=== PATIENT | male | born 1945 | race Caucasian/White ===

== ENCOUNTER → 2017-05-30 08:38 | Outpatient (CLI) | payer MEDICARE, SELFPAY ==
[2017-05-30 12:16] LABS: Absolute Lymphocyte Count 1.69 X10^3/ul (0.83-4.51); Absolute Neutrophil Count 2.9 X10^3/uL (2.0-7.7); Basophil# 0.03 X10^3/uL; Basophil% 0.5 % (0-1); Eosinophil# 0.23 X10^3/uL; Eosinophils% 4.2 % (0-5); Hemoglobin 14.3 g/dl (13.0-16.5); Lymphocyte # 1.69 X10^3/ul (4.0); Lymphocyte % 30.8 % (19-41); Mean Corp Hgb Conc 33.3 g/gl (32-36); Mean Corpuscular Hgb 29.9 pg (27.0-32.0); Mean Corpuscular Volume 89.8 fL (80-94); Mean Platelet Vol. 12.1 fl (6.2-12.0); Monocyte# 0.64 X10^3/uL; Monocyte% 11.7 % (0-10); Neutrophil # 2.88 X10^3/uL (2.7-7.7); Neutrophil % 52.6 % (47-70); Platelet Count 216 K/mm3 (150-450); RBC Distribution Width CV 14.3 % (11.6-14.6); RBC Distribution Width SD 46.5 fl (35.1-43.9); Red Blood Count 4.79 M/mm3 (4.6-6.2); White Blood Count 5.5 K/mm3 (4.4-11.0)
[2017-05-30 12:20] LABS: POSITIVE COUNT NO; POSITIVE DIFFERENTIAL NO; POSITIVE MORPHOLOGY NO
[2017-05-30 12:46] LABS: Anion Gap 8 (5-15); BUN 18 mg/dL (7-18); BUN/Creat Ratio 17.1 RATIO (10-20); Chloride 105 mmol/L (98-107); Creatinine, Serum 1.05 mg/dL (0.70-1.30); EST Glomerular Filtration Rate 74 mL/min (>60); Est Glom Filt Rate - Afr Amer 90 mL/min (>60); Glucose 100 mg/dL (74-106); PSA,Total - Annual Screen 1.36 ng/mL (0.00-4.00); Sodium Level 138 mmol/L (136-145); Thyroid Stim Hormone (TSH) 1.66 uIU/mL (0.358-3.74)
== END ==
PROVIDERS: Family Provider Family Medicine; PCP Family Medicine; Visit Provider Family Medicine
DX: I10 Essential (primary) hypertension (principal); E78.5 Hyperlipidemia, unspecified; Z12.5 Encounter for screening for malignant neoplasm of prostate
CPT/HCPCS: 36415; 80048; 84153; 84443; 85025; G0103

== ENCOUNTER → 2018-12-20 08:20 | Outpatient (CLI) | payer MEDICARE, SELFPAY ==
[2018-12-20 12:31] LABS: Absolute Lymphocyte Count 1.67 X10^3/uL (0.83-4.51); Absolute Neutrophil Count 3.2 X10^3/uL (2.0-7.7); Basophil# 0.04 X10^3/uL; Basophil% 0.7 % (0-1); Hematocrit 43.4 % (40-54); Hemoglobin 14.2 g/dL (13.0-16.5); Lymphocyte # 1.67 X10^3/ul (4.0); Mean Corp Hgb Conc 32.7 g/dL (32-36); Mean Corpuscular Hgb 29.5 pg (27.0-32.0); Mean Corpuscular Volume 90.2 fL (80-94); Mean Platelet Vol. 12.4 fl (6.2-12.0); Monocyte# 0.71 X10^3/uL; Monocyte% 11.9 % (0-10); NRBC Flagged by Analyzer 0 % (0-5); Neutrophil # 3.24 X10^3/uL (2.7-7.7); Neutrophil % 54.2 % (47-70); Platelet Count 210 K/mm3 (150-450); RBC Distribution Width CV 14.4 % (11.6-14.6); RBC Distribution Width SD 47.8 fl (35.1-43.9); Red Blood Count 4.81 M/mm3 (4.6-6.2)
[2018-12-20 12:44] LABS: ALB/GLOB Ratio 0.9 RATIO (0.9-2.4); AST(SGOT) 28 U/L (15-37); Alanine Aminotransfer ALT/SGPT 34 U/L (16-61); Albumin, Serum 3.9 g/dL (3.2-5.0); Alkaline Phosphatase 65 U/L (45-117); Anion Gap 8 (5-15); BUN 16 mg/dL (7-18); BUN/Creat Ratio 14.8 RATIO (10-20); Calcium,Total 8.8 mg/dL (8.5-10.1); Chloride 103 mmol/L (98-107); Creatinine, Serum 1.08 mg/dL (0.70-1.30); EST Glomerular Filtration Rate 71 mL/min (>60); Est Glom Filt Rate - Afr Amer 86 mL/min (>60); Globulin 4.2 g/dL (2.2-4.2); Glucose 92 mg/dL (74-106); PSA,Total - Annual Screen 1.28 ng/mL (0.00-4.00); Potassium 3.9 mmol/L (3.5-5.1); Protein, Total 8.1 g/dL (6.4-8.2); Sodium Level 137 mmol/L (136-145)
[2018-12-20 13:06] LABS: Microalbumin,Random Urine 8.1 mg/L (NO RANGE EST.); Microalbumin:Creatinine Ratio 7.3 mg/g CRE (<30 mg/g CRE)
== END ==
PROVIDERS: Family Provider Family Medicine; PCP Family Medicine; Visit Provider Family Medicine
DX: E78.5 Hyperlipidemia, unspecified (principal); I10 Essential (primary) hypertension; Z12.5 Encounter for screening for malignant neoplasm of prostate
CPT/HCPCS: 36415; 80053; 82043; 82570; 84153; 85025; G0103

== ENCOUNTER → 2019-12-24 10:31 | Outpatient (CLI) | payer MEDICARE, SELFPAY ==
[2019-12-24 12:29] LABS: Absolute Lymphocyte Count 1.29 X10^3/uL (0.83-4.51); Absolute Neutrophil Count 10.7 X10^3/uL (2.0-7.7); Basophil# 0.06 X10^3/uL; Basophil% 0.5 % (0-1); Eosinophil# 0.07 X10^3/uL; Eosinophils% 0.5 % (0-5); Hematocrit 44.5 % (40-54); Hemoglobin 14.4 g/dL (13.0-16.5); Lymphocyte # 1.29 X10^3/ul (4.0); Lymphocyte % 9.8 % (19-41); Mean Corp Hgb Conc 32.4 g/dL (32-36); Mean Corpuscular Volume 92.7 fL (80-94); Mean Platelet Vol. 12.5 fl (6.2-12.0); Monocyte# 1.09 X10^3/uL; Monocyte% 8.3 % (0-10); NRBC Flagged by Analyzer 0 % (0-5); Neutrophil # 10.65 X10^3/uL (2.7-7.7); Neutrophil % 80.5 % (47-70); Platelet Count 237 K/mm3 (150-450); RBC Distribution Width CV 13.6 % (11.6-14.6); RBC Distribution Width SD 46.6 fl (35.1-43.9); White Blood Count 13.2 K/mm3 (4.4-11.0)
[2019-12-24 13:21] LABS: ALB/GLOB Ratio 0.9 RATIO (0.9-2.4); AST(SGOT) 34 U/L (15-37); Alanine Aminotransfer ALT/SGPT 56 U/L (16-61); Albumin, Serum 3.8 g/dL (3.2-5.0); Alkaline Phosphatase 70 U/L (45-117); Anion Gap 7 (5-15); BUN 21 mg/dL (7-18); BUN/Creat Ratio 19.6 RATIO (10-20); Calcium,Total 9.3 mg/dL (8.5-10.1); Chloride 104 mmol/L (98-107); Cholesterol 229 mg/dL (200); Creatinine, Serum 1.07 mg/dL (0.70-1.30); EST Glomerular Filtration Rate 72 mL/min (>60); Est Glom Filt Rate - Afr Amer 87 mL/min (>60); Globulin 4.2 g/dL (2.2-4.2); Glucose 111 mg/dL (74-106); High Density Lipoprotein 100 mg/dL; PSA,Total - Annual Screen 1.61 ng/mL (0.00-4.00); Potassium 4.3 mmol/L (3.5-5.1); Sodium Level 137 mmol/L (136-145); Triglycerides 44 mg/dL; Very Low Density Lipoprotein 9 mg/dL (5-40)
== END ==
PROVIDERS: PCP Family Medicine; Visit Provider Family Medicine
DX: Z00.00 Encounter for general adult medical examination without abnormal findings (principal); Z12.5 Encounter for screening for malignant neoplasm of prostate; I10 Essential (primary) hypertension; E78.5 Hyperlipidemia, unspecified; R73.01 Impaired fasting glucose
CPT/HCPCS: 36415; 80053; 80061; 84153; 84443; 85025; G0103

== ENCOUNTER 2021-12-16 06:59 | Inpatient (IN) | payer MEDICARE, SELFPAY ==
[2021-12-16] VITALS (14 sets, daily range): BP systolic 142–190; BP diastolic 54–83; PULSE 54–85; RESP 14–17; TEMP 36.6–37.1; O2SAT 96–100; BMI 27.7; BMI 27.6
--- NOTE | 2021-12-16 07:47 | CT_ITS ---
We are attempting to reach an attending provider to discuss findings. An addendum with communication details will be sent when the communication is complete. STUDY: CTA HEAD AND NECK WITH CONTRAST REASON FOR EXAM: Male, 76 years old. Acute mental status change RADIATION DOSAGE (If Supplied By Facility): CTDIvol = ( 33.85 ) mGy, DLP = ( 1579.20 ) mGycm TECHNIQUE: CT angiography was performed with a multi-detector CT scanner. Data acquisition was obtained from the skull base through the vertex following intravenous administration of IV 80mL Isovue-370. MIP images were reconstructed from the axial data set. Post-processing of the angiographic images was performed, with multiplanar reformation and 3D reconstruction. Individualized dose optimization techniques were used for this CT. COMPARISON: No relevant priors. FINDINGS: Normal bilateral petrous carotid arteries. Normal right cavernous carotid artery with a normal supraclinoid bifurcation. Normal left cavernous carotid artery with a normal supraclinoid bifurcation. Normal right A1 segments of the anterior cerebral artery. There is hypoplastic development of the left A1 segment of the anterior cerebral arteries with an atretic but intact artery. Normal intact anterior communicating artery (ACOM). Normal bilateral A2 segments of the anterior cerebral arteries. Normal right M1 and M2 segments of the middle cerebral arteries, with a normal M1 bifurcation. Normal left M1 and M2 segments of the middle cerebral arteries, with a normal M1 bifurcation. Normal right posterior communicating artery (PCOM). Normal left posterior communicating artery (PCOM). Normal bilateral vertebral arteries. Normal basilar artery with a normal basilar bifurcation. The visualized bilateral superior cerebellar (SCA) arteries are normal. Normal bilateral P1, P2 and visualized P3 segments of the posterior cerebral arteries. There is no demonstrated aneurysm of the [place]. There is no demonstrated abnormality of the visualized brain. AORTIC ARCH: There is atherosclerotic calcific plaque formation of the aortic arch and great vessels arising from the aortic arch, without a hemodynamically significant stenosis. There is a normal origin of the brachiocephalic, left common carotid, and left subclavian arteries. Normal origins of the brachiocephalic, left common carotid, and left subclavian arteries. RIGHT CAROTID ARTERIES: Normal right common carotid artery (CCA). There is mild atherosclerotic plaque formation with minimal narrowing of the right carotid bulb. Normal origin of the right internal carotid (ICA) artery without a hemodynamically significant stenosis. Normal visualized cervical portion of the right internal carotid artery. Normal origin of the right external carotid artery (ECA). LEFT CAROTID ARTERIES: Normal left common carotid artery (CCA). There is mild atherosclerotic plaque formation with minimal narrowing of the left carotid bulb. Normal origin of the left internal carotid (ICA) artery without a hemodynamically significant stenosis. Normal visualized cervical portion of the left internal carotid artery. Normal origin of the left external carotid artery (ECA). VERTEBRAL ARTERIES: There is enhancement within the bilateral vertebral arteries with a small left vertebral artery, and a dominant right vertebral artery. 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 No evidence of aneurysm or vascular malformation Mild calcified plaque in both common carotid artery bulbs, and proximal ICAs but no significant CCA or ICA stenosis Small left vertebral artery Electronically Signed: Jonnathan Moreno MD at 9:32 EDT ,
--- NOTE | 2021-12-16 07:47 | EKG12_ITS ---
Test Reason : NEURO Blood Pressure : / mmHG Vent. Rate : 059 BPM Atrial Rate : 059 BPM P-R Int : 218 ms QRS Dur : 098 ms QT Int : 432 ms P-R-T Axes : 036 -11 048 degrees QTc Int : 427 ms Sinus bradycardia with 1st degree A-V block Septal infarct , age undetermined Abnormal ECG Confirmed by TRACI DELGADO, REJI ([id number]), editorial project manager OCTAVIO HARRIS ([id number]) on 12/17/2021 12:43:33 PM Referred By: Confirmed By:REJI AVILES MD
--- NOTE | 2021-12-16 07:48 | EX.ED.DYSGE1 ---
HPI History of Present Illness Chief Complaint: Neuro S/Sx Informant: patient and spouse/S.O. Narrative Narrative: 76-year-old male presenting to the emergency room feeling wobbly. He states that when he woke today he was feeling wobbly but did not fall down. He states it does not feel like a muscle strength issue. He denies any vertigo. He notes that the tips of his thumb and index finger feel tingly but the rest of the hand and fingers do not. He denies any headache neck or back pain. He denies any chest pain or palpitations. No speech or vision changes. He denies any difficulty with ezpzlw-on-hrwt. He just noticed the wobbliness when he stands up. He did have an episode similar to this following a near syncopal episode this summer. But it resolved on its own with rest. The patient notes he last checked his blood pressure about 9 months ago but is not currently taking anything for it. PFSH PFS Medical History Asthma Home Medications albuterol sulfate 90 mcg/actuation aerosol inhaler 2 puff inhalation Q4H PRN SOB 12/16/21 [History Last Taken Unknown] fluticasone 250 mcg-salmeterol 50 mcg/dose blistr powdr for inhalation (Wixela Inhub) 1 inh inhalation DAILY 12/16/21 [History Last Taken Unknown] Allergy/AdvReac Type Severity Reaction Status Date / Time chocolate flavor AdvReac Rash Verified 12/16/21 07:07 ibuprofen AdvReac Other Verified 12/16/21 07:06 Surgical History History of hernia surgery Hx of tonsillectomy Social History (Updated 12/16/21 @ 07:[address] Chris Quiroga DO) household members: spouse Smoking Status: Former smoker substance use type: does not use ROS ROS ED Constitutional Constitutional ED: Denies chills or weight loss Eyes Eyes: Denies change in vision or diplopia ENT ENT ED: Denies ear pain, rhinorrhea or sore throat Cardiovascular Cardiovascular: Denies chest pain, orthopnea, palpitations or racing heartbeat Respiratory/Chest Respiratory/Chest: Denies cough, dyspnea or orthopnea Gastrointestinal Gastrointestinal: Denies abdominal pain, diarrhea, nausea or vomiting Genitourinary Genitourinary ED: Denies dysuria, hematuria or urinary frequency Musculoskeletal Musculoskeletal: Denies arthralgias or myalgias Integumentary Denies abscess or rash Neurologic Neurologic: Reports other Details: Off balance ; Denies headache(s), paresthesias or weakness Psychiatric Psychiatric: Denies anxiety, depression, suicidal ideation or suicidal thoughts Endocrine Endocrinology: Denies polydipsia, polyphagia or polyuria Allergic/Immunologic Allergic/Immunologic ED: Denies mouth swelling, tongue swelling or urticaria EXAM Physical Exam Const Vital Signs: 12/16/21 07:00 12/16/21 09:37 12/16/21 10:24 Temperature 98.7 F Temperature Source Oral Pulse Rate 60 54 L 59 L Respiratory Rate 17 16 14 Blood Pressure 190/76 H 180/75 H 177/65 H Blood Pressure Mean 114 110 102 Pulse Ox 98 98 98 Oxygen Delivery Method Room Air Room Air Room Air Positive well nourished and well developed General Appearance ED: well developed HEENT Reports normocephalic, head/scalp atraumatic and moist mucous membranes Eyes PERRL and EOMs intact bilaterally Neck no lymphadenopathy, supple and no JVD Resp normal respiratory effort and clear to auscultation bilaterally Cardio regular rate, regular rhythm and no murmurs GI normal to inspection, nondistended, normoactive bowel sounds and non-tender Palpation: soft Back/Spine no CVA tenderness and normal ROM Extremity normal to inspection General Extremety ED: Negative for edema General Extremity: Negative for edema Neuro oriented x3 and CN's II-XII intact bilaterally Sensorium / Orientation: alert Motor Exam: strength 5/5 throughout Psych mental status grossly normal Mood & Affect: Negative for depressed or tearful Skin no rashes or lesions noted and no wounds MDM MDM MDM Narrative Medical decision making narrative: Patient's EKG shows a normal sinus rhythm. CTA head and neck was obtained which does not show anything acute. CBC is within normal limits. Coags within normal limits. Patient's creatinine is 0.9. Initial troponin was 294. Delta troponin at 335. He continues to be pain-free but noticeably hypertensive in the 190 range systolically. He received a dose of hydralazine and is currently 148/65. He remains pain-free. He got up and was able to ambulate to the bathroom but still feels wobbly. He does not have an abnormal limb-co-mvqt or hekbqo-ei-mvmj. His NIH is 0. Perhaps this is hypertensive urgency. Given his lack of significant medical problem and the significant elevated blood pressure and troponin think it is reasonable to observe him today for continued care. Lab Data Attestation: I reviewed the patient's lab results. Labs: Laboratory Results - last 24 hr 12/16/21 12/16/21 12/16/21 07:36 07:49 07:49 WBC 6.1 RBC 5.03 Hgb 15.0 Hct 46.1 MCV 91.7 MCH 29.8 MCHC 32.5 RDW Std Deviation 46.7 H RDW Coeff of Garth 13.8 Plt Count 264 MPV 12.1 H Immature Gran % (Auto) 0.200 Neut % (Auto) 51.5 Lymph % (Auto) 30.8 [place] % (Auto) 14.2 H Eos % (Auto) 2.6 Baso % (Auto) 0.7 Absolute Neuts (auto) 3.2 Absolute Lymphs (auto) 1.88 Nucleated RBC % 0 PT 14.4 INR 1.2 APTT 27.3 Sodium Potassium Chloride Carbon Dioxide Anion Gap BUN Creatinine Estim Creat Clear Calc Est GFR (MDRD) Af Amer Est GFR (MDRD) Non-Af BUN/Creatinine Ratio Glucose Calcium Total Bilirubin AST ALT Alkaline Phosphatase Troponin I High Sens Total Protein Albumin Globulin Albumin/Globulin Ratio POC Glucose 90 12/16/21 12/16/21 07:49 10:09 WBC RBC Hgb Hct MCV MCH MCHC RDW Std Deviation RDW Coeff of Garth Plt Count MPV Immature Gran % (Auto) Neut % (Auto) Lymph % (Auto) [place] % (Auto) Eos % (Auto) Baso % (Auto) Absolute Neuts (auto) Absolute Lymphs (auto) Nucleated RBC % PT INR APTT Sodium 138 Potassium 4.1 Chloride 107 Carbon Dioxide 27.0 Anion Gap 4 L BUN 21 H Creatinine 0.92 Estim Creat Clear Calc 69.38 Est GFR (MDRD) Af Amer 103 Est GFR (MDRD) Non-Af 85 BUN/Creatinine Ratio 22.7 H Glucose 106 Calcium 9.0 Total Bilirubin 0.40 AST 30 ALT 35 Alkaline Phosphatase 58 Troponin I High Sens 294 H* 335 H* Total Protein 7.5 Albumin 3.4 Globulin 4.1 Albumin/Globulin Ratio 0.8 L POC Glucose Radiography Diagnostic Testing: Clinical Impression(s) from Imaging Studies Head/Neck CTA 12/16/21 07:47 IMPRESSION: No CTA evidence of occlusion or significant stenosis, 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 No evidence of aneurysm or vascular malformation Mild calcified plaque in both common carotid artery bulbs, and proximal ICAs but no significant CCA or ICA stenosis Small left vertebral artery N.B. : The above Results were Read Back by Jonnathan Moreno MD to Chris Quiroga MD, and understanding confirmed on 12/16/2021 09:39:37 (ET). Electronically Signed: Jonnathan Moreno MD at 9:32 EDT , Chest X-Ray 12/16/21 09:34 IMPRESSION: No acute process Electronically Signed: Mikal Zuniga MD at 9:59 EDT , EKG Initial EKG: Attestation: I personally reviewed and interpreted this EKG as follows: Comments: Sinus bradycardia with a ventricular rate of 59 bpm. First-degree AV block noted. Discharge Plan Triage Chief Complaint: Neuro S/Sx Other Complaint: General Illness ED Provider: Chris Quiroga Dx/Rx/DC Orders Clinical Impression: Hypertensive urgency, Elevated troponin, Ataxia Prescriptions: No Action albuterol sulfate 90 mcg/actuation HFA aerosol inhaler 2 puff INHALATION Q4H PRN (Reason: SOB) Label Comments: 2 PUFFS INHALED ORALLY EVERY 4 HOURS NEEDED fluticasone propion-salmeterol [Wixela Inhub] 250-50 mcg/dose blister with device 1 inh INHALATION DAILY Primary Care Provider: Glen Balderas Referrals: Glen Balderas MD [Primary Care Provider] - Disposition Disposition: Acute Care Hospital [facility] NIHSS NIHSS 1a. Level of Consciousness: Alert; keenly responsive 1b. LOC Questions: Answers BOTH questions correctly. 1c. LOC Commands: Performs both tasks correctly. 2. Best Gaze: Normal 3. Visual: No visual loss 4. Facial Palsy: Normal symmetrical movements 5a. Left Arm: No drift; arm holds 90 (or 45) degrees for full 10 seconds 5b. Right Arm: No drift; arm holds 90 (or 45) degrees for full 10 seconds 6a. Left Leg: No drift; leg holds 30-degree position for full 5 seconds 6b. Right Leg: No drift; leg holds 30-degree position for full 5 seconds 7. Limb Ataxia: Absent 8. Sensory: Normal; no sensory loss 9. Best Language: No aphasia; normal 10. Dysarthria: Normal 11. Extinction and Inattention: No abnormality Total: 0
[2021-12-16 07:55] LABS: Bedside Glucose 90 mg/dL (74-106)
[2021-12-16] MEDS: 0.9% Normal Saline 1,000 ML 1000 ML IV (07:57)
--- NOTE | 2021-12-16 08:00 | NURSING ---
NO OLD EKGS
[2021-12-16 08:02] LABS: Absolute Lymphocyte Count 1.88 X10^3/uL (0.83-4.51); Absolute Neutrophil Count 3.2 X10^3/uL (2.0-7.7); Basophil# 0.04 X10^3/uL; Basophil% 0.7 % (0-1); Eosinophil# 0.16 X10^3/uL; Eosinophils% 2.6 % (0-5); Hematocrit 46.1 % (40-54); Lymphocyte # 1.88 X10^3/ul (0.83-4.51); Lymphocyte % 30.8 % (19-41); Mean Corp Hgb Conc 32.5 g/dL (32-36); Mean Corpuscular Hgb 29.8 pg (27.0-32.0); Mean Corpuscular Volume 91.7 fL (80-94); Mean Platelet Vol. 12.1 fl (6.2-12.0); Monocyte# 0.87 X10^3/uL; Monocyte% 14.2 % (0-10); NRBC Flagged by Analyzer 0 % (0-5); Neutrophil # 3.15 X10^3/uL (2.7-7.7); Neutrophil % 51.5 % (47-70); Platelet Count 264 K/mm3 (150-450); RBC Distribution Width CV 13.8 % (11.6-14.6); RBC Distribution Width SD 46.7 fl (35.1-43.9); Red Blood Count 5.03 M/mm3 (4.6-6.2); White Blood Count 6.1 K/mm3 (4.4-11.0)
[2021-12-16 08:49] LABS: International Normalized Ratio 1.2; Prothrombin Time (Protime)PT. 14.4 SECONDS (11.7-14.9)
[2021-12-16 08:50] LABS: Partial Thromboplast Time 27.3 Seconds (24.1-36.2)
[2021-12-16 08:58] LABS: ALB/GLOB Ratio 0.8 RATIO (0.9-2.4); AST(SGOT) 30 U/L (15-37); Alanine Aminotransfer ALT/SGPT 35 U/L (16-61); Albumin, Serum 3.4 g/dL (3.2-5.0); Alkaline Phosphatase 58 U/L (45-117); Anion Gap 4 (5-15); BUN 21 mg/dL (7-18); BUN/Creat Ratio 22.7 RATIO (10-20); Chloride 107 mmol/L (98-107); Creatinine, Serum 0.92 mg/dL (0.70-1.30); EST Glomerular Filtration Rate 85 mL/min (>60); Est Glom Filt Rate - Afr Amer 103 mL/min (>60); Estimated Creatinine Clearance 69.38 ml/min; Globulin 4.1 g/dL (2.2-4.2); Glucose 106 mg/dL (74-106); Potassium 4.1 mmol/L (3.5-5.1); Protein, Total 7.5 g/dL (6.4-8.2); Sodium Level 138 mmol/L (136-145); Troponin-I HS 294 pg/mL (3.0-78.0)
--- NOTE | 2021-12-16 09:34 | RAD_ITS ---
STUDY: X-RAY CHEST REASON FOR EXAM: Male, 76 years old. stroke PT REPORTS HE FEELS WOBBLY WHEN HE GETS UP TO AMBULATE AND HAS NUMBNESS TO HIS LEFT FINGERS. STARTED AROUND 0600 THIS AM. TECHNIQUE: 2 AP portable view of the chest. COMPARISON: None. FINDINGS: The lungs are clear and expanded. There is no demonstrated pleural abnormality. Normal size heart. Normal mediastinum and cipriano. Normal visualized pulmonary arteries. There is atherosclerotic calcification of the aortic arch with tortuosity. There are diffuse degenerative changes of the visualized thoracic spine. Normal visualized ribs, clavicles, and shoulders. There is no demonstrated abnormality of the visualized soft tissue structures of the upper abdomen. RAD/Chest 1 View (Portable) IMPRESSION: No acute process Electronically Signed: Mikal Zuniga MD at 9:59 EDT ,
[2021-12-16] MEDS: hydrALAZINE 20 MG/ML Vial 10 MG IV (10:25)
[2021-12-16 10:46] LABS: Troponin-I HS 335 pg/mL (3.0-78.0)
--- NOTE | 2021-12-16 11:19 | NURSING ---
DR CIRO FLORES
--- NOTE | 2021-12-16 11:24 | MRI_ITS ---
STUDY: MRI BRAIN WITHOUT CONTRAST REASON FOR EXAM: Male, 76 years old. ataxia, HTN, tips of thumb and index finger tingling TECHNIQUE: Standardized multiplanar fat and water weighted pulse sequences were obtained. COMPARISON: CTA head 12/16/2021. FINDINGS: No intracranial mass, mass effect or midline shift. No hemorrhage, territorial infarct or acute ischemia. Normal size of the ventricles and extra-axial spaces for the patient''s age. Normal white matter tracts of the supratentorial brain. Normal bilateral basal ganglia. Normal thalami. There is no extra-axial fluid accumulation. Normal flow voids within the major intracranial circulation suggesting patency by spin echo criteria. Pituitary gland is normal in height. Normal midbrain, thien and medulla. Normal cerebellum. Normal basal cisterns. Normal bilateral temporal bones. Normal bilateral internal auditory canals. Normal visualized paranasal sinuses. Normal calvarium and skull base. Normal visualized soft tissue structures. MRI/Brain without Contrast IMPRESSION: Normal unenhanced MRI of the brain. Electronically Signed: Therese Jama MD at 16:33 EDT Reading Location ID and State: [id number] / Tel , Service support ,
--- NOTE | 2021-12-16 11:24 | ECHOCS_ITS ---
Reason For Study: TIA/STROKE Procedure This was a 2D Doppler, Color Flow transthoracic echocardiogram. The study was technically difficult. Exam performed portable in patient room. Left Ventricle Normal LV size. Left ventricular systolic function is normal. The estimated ejection fraction is 60 %. No evidence for diastolic dysfunction. No regional wall motion abnormalities noted. Right Ventricle Normal RV size. Normal systolic function. Atria The left atrium is mildly enlarged. Normal right atrium. No doppler evidence for ASD. Bubble contrast study negative for right to left interatrial shunt. Mitral Valve There is mild mitral annular calcification. Extension of the mitral annular calcification on the base of the posterior mitral valve leaflet. Trivial mitral valve insufficiency. Tricuspid Valve Normal tricuspid valve. Trivial tricuspid valve insufficiency. Unable to estimate RV systolic pressure due to insufficient tricuspid regurgitant envelope. Aortic Valve Trisinus/trileaflet aortic valve. 2D echocardiographic images demonstrate a small soft appearing echodensity associated with the aortic valve leaflets on the aortic side of uncertain etiology with a differential diagnosis including papillary fibroelastoma, however, other etiologies such as a vegetation cannot necessarily be excluded. Pulmonic Valve Normal pulmonic valve. Great Vessels Normal sized aortic root. Pericardium/Pleural No pericardial effusion. Medication Diluted definity 3ml given slow IV push to enhance endocardial definition. Performed a rapid injection of agitated mix of 9 cc saline and 1cc air to assess for atrial septal defect. MMode/2D Measurements & Calculations LVIDd: 4.5 cm IVSd: 1.0 cm Ao root diam: 3.3 cm LVIDs: 2.9 cm LVPWd: 0.90 cm RVDd: 3.4 cm FS: 34.9 % LAV(MOD-bp): 51.2 ml LVAd ap4: 31.0 cm2 SV(MOD-sp4): 60.7 ml LAV(MOD-bp) Indexed: 25.5 ml/m2 LVLd ap4: 7.7 cm LAV(MOD-sp2): 48.6 ml EDV(MOD-sp4): 100.8 ml LAV(MOD-sp4): 52.8 ml EDV(sp4-el): 106.0 ml LVAs ap4: 17.6 cm2 LVLs ap4: 6.3 cm ESV(MOD-sp4): 40.1 ml ESV(sp4-el): 41.8 ml EF(MOD-sp4): 60.2 % EF(sp4-el): 60.6 % SV(sp4-el): 64.2 ml LA A4 area: 19.3 cm2 LA dimension(2D): 4.4 cm RA A4 area: 17.2 cm2 Time Measurements MV dec time: 0.20 sec Doppler Measurements & Calculations MV E max rd: 56.7 cm/sec Lat Peak E' Rd: 12.7 cm/sec Med Peak E' Rd: 8.3 cm/sec MV A max rd: 86.7 cm/sec E/E' lat: 4.5 E/E' med: 6.8 MV E/A: 0.65 MV dec slope: 290.3 cm/sec2 Ao V2 max: 117.7 cm/sec LV V1 max: 94.9 cm/sec Ao max P.5 mmHg LV V1 max P.6 mmHg PA V2 max: 83.4 cm/sec ECHO/Echo Complete W/ Contrast Interpretation Summary The study was technically difficult. Left ventricular systolic function is normal. The estimated ejection fraction is 60 %. The left atrium is mildly enlarged. There is mild mitral annular calcification. Extension of the mitral annular calcification on the base of the posterior mitr al valve leaflet Trivial mitral valve insufficiency. Trivial tricuspid valve insufficiency. 2D echocardiographic images demonstrate a small soft appearing echodensity asso ciated with the aortic valve leaflets on the aortic side of uncertain etiology with a different ial diagnosis including papillary fibroelastoma, however, other etiologies such as a vegetati on cannot necessarily be excluded. Unable to estimate RV systolic pressure due to insufficient tricuspid regurgita nt envelope. No evidence for diastolic dysfunction. Consider further evaluation of the aortic valve findings with TRICIA if clinically indicated. Ordering Physician: Yasmeen Bryant Referring Physician: NESS HUITRON Performed By: Harika Church RDCS
--- NOTE | 2021-12-16 11:28 | NURSING ---
[facility], [facility] CALLED. GAYLE WILL BE HEREIN 1HR 20 MIN. SHE WILL CALL WITH A ROOM
--- NOTE | 2021-12-16 11:32 | NURSING ---
[facility]
[2021-12-16] MEDS: Aspirin 325 MG Tablet PO (11:55)
[2021-12-16] MEDS: Lisinopril 20 MG Tablet PO (13:49)
[2021-12-16 15:05] LABS: Troponin-I HS 322 pg/mL (3.0-78.0)
--- NOTE | 2021-12-16 15:05 | CHAPLAIN ---
Type of Pastoral Visit _x__ Initial Visit ___ Follow-up Visit ___ On-call Visit ___ General Patient Visit ___ Spiritual Assessment ___ Family Conference ___ Bereavement ___ Rapid Response ___ Code Blue ___ Other (describe below) Pastoral Care Referral From _x__ Patient ___ Family ___ Nurse ___ Physician ___ Chief Of Anesthesiology ___ Sweet Pickle Maker ___ Other (describe below) Sacrament/Intervention _x__ Active listening ___ Anointing ___ Yarsanism ___ Bereavement ___ Communion ___ Treva exploration ___ ___ Life review _x__ Prayer ___ Reconciliation ___ Sacrament of Sick ___ Supportive presence ___ Wedding ___ Other (describe below) Pastoral Comments patient is finishing up lunch and is welcoming of spiritual care visit; pt states that this is new to him and that he will be getting more tests to start to rule out things; pt said goal is to discover what is going on in his health; spouse is with pt for support; pt states that prayer would be welcomed
--- NOTE | 2021-12-16 15:48 | ECHOTEE_ITS ---
Reason For Study: Endocarditis Medication TRICIA probe 6VT-D (SN [id number]) passed with minimal difficulty. No complications were noted. Versed 1 mg given slow IVP. Fentanyl 50 mcg given slow IVP. Cetacaine Topical [place] given X3 orally. Performed a rapid injection of agitated mix of 9 cc saline and 1cc air to assess for atrial septal defect. Left Ventricle Normal LV size. Left ventricular systolic function is normal. The estimated ejection fraction is 65 %. No regional wall motion abnormalities noted. Right Ventricle Normal RV size. The right ventricular wall motion is normal. Atria No doppler evidence for ASD. Bubble contrast study negative for right to left interatrial shunt. The left atrium is mildly enlarged. There is no sponatenous contrast in the left atrium. No thrombus is detected in the left atrial appendage. Normal right atrium. There is no sponatenous contrast in the right atrium. Note right atrial/appendage thrombus appreciated. Mitral Valve There is mild mitral annular calcification. Normal mitral valve. Trivial mitral valve insufficiency. Tricuspid Valve Normal tricuspid valve. Trivial tricuspid valve insufficiency. Aortic Valve Trisinus/trileaflet aortic valve. 2D and 3D echocardiographic images demonstrate a mobile echodensity appearing to be associated with the right coronary cusp of the aortic valve apparatus measuring approximately 0.7 cm x 1.0 cm in dimension appearing compatible with a papillary fibroelastoma. Pulmonic Valve The pulmonic valve is not well visualized. Vessels Normal-appearing thoracic aorta. Pericardium No pericardial effusion. ECHO/Echo Transesophageal (TRICIA) Interpretation Summary Left ventricular systolic function is normal. The estimated ejection fraction is 65 %. The left atrium is mildly enlarged. There is no sponatenous contrast in the left atrium. No thrombus is detected in the left atrial appendage. There is mild mitral annular calcification. Trivial mitral valve insufficiency. Trivial tricuspid valve insufficiency. 2D and 3D echocardiographic images demonstrate a mobile echodensity appearing t o be associated with the right coronary cusp of the aortic valve apparatus measuring approximately 0 .7 cm x 1.0 cm in dimension appearing compatible with a papillary fibroelastoma. Bubble contrast study negative for right to left interatrial shunt. Comment: The patient's case was discussed and reviewed with Dr. Bryant of the [facility] staff. Ordering Physician: Yasmeen Bryant Referring Physician: Glen Balderas Performed By: Elmo Hernandez RCS
--- NOTE | 2021-12-16 16:41 | PCM.HP.STD ---
HPI - General General Date of Admission: 12/16/21 Date of Service: 12/16/21 Chief Complaint: Ataxia HPI Narrative DAISHA TUCKER, is a 76 M who presented to the emergency department [facility] on 12/16/2021 complaining of feeling wobbly. He reported that upon awakening today he was feeling a bit unstable but did not fall down. His his confirms that he was quite ataxic upon getting up. Patient indicated that he did not feel weak but it was more of an unsteadiness. He denied any vertigo. He also complained of the tips of his left thumb and index finger feeling tingly but not numb. He had no other paresthesias and denied any focal muscle weakness. His indicated that this happened 1 previous episode over the summer but went away independently. He had previously been diagnosed with hypertension and was placed on lisinopril that was converted to amlodipine but then these medications were discontinued as he stated his blood pressure normalized. He has a history of asthma and had a visit several months ago and his blood pressure was noted to be at that time however they attributed this to his asthma. At the time of my evaluation he states that overall his symptoms feel improved however he has not been up to move around. His indicated that his previous episodes seem to be associated with a facial droop however she cannot remember which side of his face was drooping and she was not clear that it occurred at this time. He exercises on a regular basis and is quite active. Vital signs at the time of presentation showed a temperature of 97.7, heart rate was 60, blood pressure was 190/76 and stayed elevated throughout his emergency department course, respiratory rate was 17, and oxygen saturation was 98 200% on room air. BC was overall unremarkable other than a mild monocytosis. Coags were normal. His chemistry panel was unremarkable. His initial troponin was 294 with a repeat at 335. EKG showed sinus bradycardia with a ventricular rate of 59 bpm and a first-degree AV block but no ST-T wave changes consistent with acute ischemia. His chest x-ray was unremarkable. CTA of his head and neck showed no occlusions or marked calcifications but was positive for a hypoplastic left A1 segment and a small left vertebral artery. [facility] Medical History Asthma HTN (hypertension) Home Medications albuterol sulfate 90 mcg/actuation aerosol inhaler 2 puff inhalation Q4H PRN SOB 12/16/21 [History Last Taken Unknown] fluticasone 250 mcg-salmeterol 50 mcg/dose blistr powdr for inhalation (Wixela Inhub) 1 inh inhalation DAILY 12/16/21 [History Last Taken Unknown] loratadine 10 mg tablet (Claritin) 10 mg PO DAILY Check with primary doctor 12/16/21 [History Last Taken Unknown] Allergy/AdvReac Type Severity Reaction Status Date / Time chocolate flavor AdvReac Rash Verified 12/16/21 07:07 ibuprofen AdvReac Other Verified 12/16/21 07:06 no significant family history Surgical History History of hernia surgery Hx of tonsillectomy Social History (Updated 12/16/21 @ 16:[address] Yasmeen Bryant DO) household members: spouse housing: house Smoking Status: Former smoker alcohol intake: never substance use type: does not use what type of physical activity do you participate in: swimming How many days of moderate to strenuous exercise, like a brisk walk, did you do in the last 7 days: 7 frequency: daily ROS Constitutional Constitutional: Denies anorexia, change in weight, chills, fatigue, fever(s), malaise, night sweats, weakness or other Eyes Eyes: Denies blurry vision, change in eye color, change in vision, discharge from eye(s), double vision, erythema, eye pain, loss of vision or other ENT HEENT: Reports abnormal hearing and hearing loss; Denies dysphagia, ear pain, epistaxis, headache(s), nasal congestion, nasal discharge, post nasal drip, sinus pressure, sore throat or other Cardiovascular Cardiovascular: Denies chest pain, claudication, dyspnea on exertion, edema, lightheadedness, orthopnea, palpitations, paroxysmal nocturnal dyspnea, rapid heart rate, syncope or other Respiratory/Chest Respiratory/Chest: Denies cough, dyspnea, excessive phlegm production, hemoptysis, productive cough, shortness of breath at rest, shortness of breath with exertion, wheezing or other Gastrointestinal Gastrointestinal: Denies abdominal pain, coffee ground emesis, constipation, diarrhea, dyspepsia, hematemesis, hematochezia, loose stools, melena, nausea, vomiting or other Genitourinary Genitourinary: Denies burning urination, difficulty urinating, dysuria, hematuria, nocturia, urinary frequency, urinary hesitancy, urinary incontinence, urinary urgency or other Musculoskeletal Musculoskeletal: Denies arthralgias, back pain, joint pain, joint stiffness, joint swelling, myalgias, neck pain or other Neurologic Neurologic: Reports abnormal gait and paresthesias; Denies abnormal speech, confusion, disequilibrium, dizziness, focal weakness, headache(s), numbness, seizure-like activity, seizures, syncope, tingling, tremor(s) or other Psychiatric Psychiatric: Denies anxiety, depression, homicidal ideation, suicidal ideation or other Hematologic/Lymphatic Hematologic/Lymphatic: Denies anemia, easy bleeding, easy bruising, lymphadenopathy or other Allergic/Immunologic Allergic/Immunologic: Denies rhinitis, hives, eczemia, asthma or other Vital Signs Vital Signs Vital Signs: 12/16/21 07:00 12/16/21 09:37 12/16/21 10:24 Temperature 98.7 F Temperature Source Oral Pulse Rate 60 54 L 59 L Respiratory Rate 17 16 14 Respiratory Effort Respiratory Depth Respiratory Pattern Blood Pressure 190/76 H 180/75 H 177/65 H Blood Pressure Mean 114 110 102 Blood Pressure Source Blood Pressure Position Blood Pressure Location Pulse Ox 98 98 98 Oxygen Delivery Method Room Air Room Air Room Air 12/16/21 10:45 12/16/21 11:30 12/16/21 12:12 Temperature 98.7 F 97.9 F Temperature Source Oral Oral Pulse Rate 59 L 68 Respiratory Rate 14 17 Respiratory Effort Respiratory Depth Respiratory Pattern Blood Pressure 145/54 H 176/68 H 185/83 H Blood Pressure Mean 84 104 117 Blood Pressure Source Monitor Blood Pressure Position Semi-Fowlers Blood Pressure Location Left Arm Pulse Ox 98 100 Oxygen Delivery Method Room Air Room Air 12/16/21 12:40 12/16/21 14:51 12/16/21 14:49 Temperature Temperature Source Pulse Rate 85 66 Respiratory Rate Respiratory Effort Respiratory Depth Respiratory Pattern Blood Pressure Blood Pressure Mean Blood Pressure Source Blood Pressure Position Blood Pressure Location Pulse Ox 99 Oxygen Delivery Method Room Air 12/16/21 13:00 12/16/21 16:10 Temperature 97.9 F Temperature Source Oral Pulse Rate 61 Respiratory Rate 16 Respiratory Effort Normal Non-Labored Respiratory Depth Normal Respiratory Pattern Normal Blood Pressure 166/66 H Blood Pressure Mean 99 Blood Pressure Source Monitor Blood Pressure Position Semi-Fowlers Blood Pressure Location Right Arm Pulse Ox 100 Oxygen Delivery Method Room Air Room Air Weight Weight: 84.7 kg Body Mass Index (BMI) 27.6 Physical Exam Const alert, oriented x3, no apparent distress, average body habitus, healthy appearing and well nourished Constitutional Narrative: Very pleasant, older, white male sitting up in bed, at bedside, patient appears comfortable nontoxic HEENT normocephalic, head/scalp atraumatic, hearing grossly normal bilaterally, moist oral mucous membranes and oropharynx normal HEENT Narrative: Dentition is good for age, Mallampati is 2, no thrush Eyes PERRL, EOMs intact bilaterally and conjunctivae normal Eyes Narrative: No scleral icterus Neck no lymphadenopathy, supple, no JVD and no carotid bruits Neck Narrative: Trachea midline, no thyroid enlargement Resp normal respiratory effort, no retractions, no use of accessory muscles and clear to auscultation bilaterally Auscultation: Negative for crackles, rales, rhonchi or wheezes Cardio regular rate, regular rhythm, S1 normal heart sound, S2 normal heart sound, no murmurs, no rub, no clicks and no JVD Cardio Narrative: Positive S4 gallop GI normal to inspection, nondistended, normoactive bowel sounds, soft to palpation and non-tender Extremity no clubbing, cyanosis or edema Extremity Narrative: 2+ pedal pulses Skin no wounds, skin turgor normal, no jaundice, no petechiae and no mottling Skin Narrative: Scattered actinic keratoses and previously his sun exposed areas Neuro oriented x3, CN's II-XII intact bilaterally, moves all extremities and no focal motor deficits Neuro Narrative: Reflexes are 2+, no significant sensory deficits other than distal tip of left thumb and index finger Speech: speech normal Psych affect normal Psych Narrative: Very pleasant and appropriately interactive Results Lab / Micro Data Result Diagrams: 12/16/21 07:49 12/16/21 07:49 Labs: Laboratory Results - last 24 hr 12/16/21 07:36: POC Glucose 90 12/16/21 07:49: WBC 6.1, RBC 5.03, Hgb 15.0, Hct 46.1, MCV 91.7, MCH 29.8, MCHC 32.5, RDW Std Deviation 46.7 H, RDW Coeff of Garth 13.8, Plt Count 264, MPV 12.1 H, Immature Gran % (Auto) 0.200, Neut % (Auto) 51.5, Lymph % (Auto) 30.8, [place] % (Auto) 14.2 H, Eos % (Auto) 2.6, Baso % (Auto) 0.7, Absolute Neuts (auto) 3.2, Absolute Lymphs (auto) 1.88, Nucleated RBC % 0 12/16/21 07:49: PT 14.4, INR 1.2, APTT 27.3 12/16/21 07:49: Sodium 138, Potassium 4.1, Chloride 107, Carbon Dioxide 27.0, Anion Gap 4 L, BUN 21 H, Creatinine 0.92, Estim Creat Clear Calc 69.38, Est GFR (MDRD) Af Amer 103, Est GFR (MDRD) Non-Af 85, BUN/Creatinine Ratio 22.7 H, Glucose 106, Calcium 9.0, Total Bilirubin 0.40, AST 30, ALT 35, Alkaline Phosphatase 58, Troponin I High Sens 294 H*, Total Protein 7.5, Albumin 3.4, Globulin 4.1, Albumin/Globulin Ratio 0.8 L 12/16/21 10:09: Troponin I High Sens 335 H* 12/16/21 13:56: Troponin I High Sens 322 H* Radiology Impression Head/Neck CTA 12/16/21 07:47 IMPRESSION: No CTA evidence of occlusion or significant stenosis, 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 No evidence of aneurysm or vascular malformation Mild calcified plaque in both common carotid artery bulbs, and proximal ICAs but no significant CCA or ICA stenosis Small left vertebral artery N.B. : The above Results were Read Back by Jonnathan Moreno MD to Chris Quiroga MD, and understanding confirmed on 12/16/2021 09:39:37 (ET). Electronically Signed: Jonnathan Moreno MD at 9:32 EDT , Chest X-Ray 12/16/21 09:34 IMPRESSION: No acute process Electronically Signed: Mikal Zuniga MD at 9:59 EDT , Brain MRI 12/16/21 11:24 IMPRESSION: Normal unenhanced MRI of the brain. Electronically Signed: Therese Jama MD at 16:33 EDT , Echocardiogram 12/16/21 11:24 Interpretation Summary The study was technically difficult. Left ventricular systolic function is normal. The estimated ejection fraction is 60 %. The left atrium is mildly enlarged. There is mild mitral annular calcification. Extension of the mitral annular calcification on the base of the posterior mitral valve leaflet Trivial mitral valve insufficiency. Trivial tricuspid valve insufficiency. 2D echocardiographic images demonstrate a small soft appearing echodensity associated with the aortic valve leaflets on the aortic side of uncertain etiology with a differential diagnosis including papillary fibroelastoma, however, other etiologies such as a vegetation cannot necessarily be excluded. Unable to estimate RV systolic pressure due to insufficient tricuspid regurgitant envelope. No evidence for diastolic dysfunction. Consider further evaluation of the aortic valve findings with TRICIA if clinically indicated. Ordering Physician: Yasmeen Bryant Referring Physician: NESS HUITRON Performed By: Harika Church RDCS Assessment & Plan Assessment/Plan (1) Ataxia: (2) Elevated troponin: (3) Hypertensive emergency: PLAN: Plan Ataxia -May be related to markedly elevated blood pressure and hypertensive emergency however need to rule out TIA/stroke -Check echocardiogram -MRI -CTA without any marked abnormalities -Check lipids -Check TSH -Start statin -Baby aspirin -PT/OT consultation Hypertensive emergency -Suspect this is etiology for his troponin elevation on presentation -As needed's available per stroke order set -We will start low-dose lisinopril for improved control and monitor as I do not want to drop his blood pressure too quickly with concern for above stroke/TIA -No marked cutoffs on CTA -Patient will likely need discharged on antihypertensives -Goal blood pressure is less than 140/90 given risk factors Troponin elevation -Anticipate related to blood pressure elevation -Cycle cardiac enzymes -Check echocardiogram -If echo shows no wall motion abnormality and troponin trend down will attribute to blood pressure elevation and no need for further work-up -EKG is normal -Patient is completely asymptomatic and exercises on a regular basis with regard to any chest pain or shortness of breath Asthma -Continue home budesonide -Continue home as needed albuterol DVT prophylaxis -Lovenox CODE STATUS -Full code Charges/Coding Visit Charges Inpatient E&M: 63577 Init Hosp L3
[2021-12-16] MEDS: Albuterol 2.5 MG/3 ML VIAL.NEB. INHALATION (19:44)
[2021-12-16] MEDS: Budesonide Respules 0.5 MG/2 ML AMPUL.NEB. INHALATION (19:44)
[2021-12-16] MEDS: Atorvastatin Calcium 80 MG Tablet PO (21:07)
[2021-12-17] VITALS (14 sets, daily range): BP systolic 139–159; BP diastolic 61–71; PULSE 51–82; RESP 12–19; TEMP 36.5–37.1; O2SAT 93–96; BMI 27.6
[2021-12-17 05:58] LABS: Absolute Neutrophil Count 3.3 X10^3/uL (2.0-7.7); Basophil# 0.05 X10^3/uL; Basophil% 0.8 % (0-1); Eosinophil# 0.15 X10^3/uL; Eosinophils% 2.4 % (0-5); Hematocrit 43.8 % (40-54); Hemoglobin 14.8 g/dL (13.0-16.5); Lymphocyte % 30.1 % (19-41); Mean Corp Hgb Conc 33.8 g/dL (32-36); Mean Corpuscular Hgb 30.4 pg (27.0-32.0); Mean Corpuscular Volume 89.9 fL (80-94); Mean Platelet Vol. 11.5 fl (6.2-12.0); Monocyte# 0.88 X10^3/uL; Monocyte% 13.9 % (0-10); NRBC Flagged by Analyzer 0 % (0-5); Neutrophil # 3.32 X10^3/uL (2.7-7.7); Neutrophil % 52.6 % (47-70); Platelet Count 250 K/mm3 (150-450); RBC Distribution Width SD 46.5 fl (35.1-43.9); Red Blood Count 4.87 M/mm3 (4.6-6.2); White Blood Count 6.3 K/mm3 (4.4-11.0)
[2021-12-17 06:34] LABS: Phosphorus 3.1 mg/dL (2.5-4.9)
[2021-12-17 07:04] LABS: Anion Gap 3 (5-15); BUN 19 mg/dL (7-18); Calcium,Total 9.1 mg/dL (8.5-10.1); Chloride 109 mmol/L (98-107); Cholesterol 196 mg/dL (200); Creatinine, Serum 0.95 mg/dL (0.70-1.30); EST Glomerular Filtration Rate 82 mL/min (>60); Est Glom Filt Rate - Afr Amer 99 mL/min (>60); Estimated Creatinine Clearance 67.19 ml/min; Glucose 101 mg/dL (74-106); High Density Lipoprotein 75 mg/dL; Magnesium 2.5 mg/dL (1.6-2.6); Potassium 4.1 mmol/L (3.5-5.1); Sodium Level 139 mmol/L (136-145); Thyroid Stim Hormone (TSH) 1.96 uIU/mL (0.358-3.74); Triglycerides 58 mg/dL; Very Low Density Lipoprotein 12 mg/dL (5-40)
[2021-12-17] MEDS: Albuterol 2.5 MG/3 ML VIAL.NEB. INHALATION ×3 (07:29→18:50)
[2021-12-17] MEDS: Budesonide Respules 0.5 MG/2 ML AMPUL.NEB. INHALATION ×2 (07:29→18:50)
[2021-12-17] MEDS: 0.9% Saline Lock 10 ML Syringe IV (07:59)
--- NOTE | 2021-12-17 10:01 | CASEMGMT ---
SERGIO CM NOTE: Insurance review [facility] hospitals [facility] Insurance if transfer is recommended is as follows: [facility], [place], [facility], [facility], [facility], [facility], [facility]), [place], and . Cristina HURTADO RN CM
--- NOTE | 2021-12-17 11:10 | CASEMGMT ---
RN ELIGIO Face to Face with patient for initial transition planning/care coordination assessment. RN CM introduced self and role at [facility]. Patient lying in bed, alert and oriented, at bedside. Patient willing to participate in assessment and is able to answer all questions appropriately. Care providers, pharmacy, and demographics verified. Patient wishes to discharge home, denies need for home health at this time. Patient states he has no further needs or concerns at this time. CM to follow for discharge planning needs that may arise. PCP: Andrey Specialists: none Preferred Pharmacy: [facility] Insurance: [place] Prescription Benefit: yes Living Will/HPOA: yes, Irma Meredith LNOK: Living Arrangements: Patient lives with in a 1.5 story condo with no steps to enter. Bed and bath on first floor. Patient states he is independent Transportation: self, DME/HHC: Patient states he has raised toilet, cane, walker at home. No previous HHC or SNF. Disposition Plan: Patient to discharge home with family support and follow-up plans in place. Raissa HURTADO, RN, CM
[2021-12-17] MEDS: Aspirin 81 MG TAB.CHEW PO (11:24)
[2021-12-17] MEDS: hydroCHLOROthiazide 25 MG Tablet PO (11:25)
[2021-12-17] MEDS: Lisinopril 20 MG Tablet PO (11:25)
[2021-12-17] MEDS: Loratadine 10 MG Tablet PO (11:25)
[2021-12-17] MEDS: Enoxaparin 40 MG/0.4 ML Syringe SC (11:26)
--- NOTE | 2021-12-17 13:18 | CON.PCM.CA_ITS ---
Assessment & Plan Assessment/Plan (1) Papillary fibroelastoma of heart: PLAN: The patient has echocardiographic findings compatible with a papillary fibroelastic [place]. It is unclear as to whether or not this is associated with the patient's ongoing concerns versus being a coincidental finding that has been detected during his noninvasive evaluation. At the moment it would be recommended that the patient be referred to a tertiary care center for CT surgery evaluation for consideration for surgical resection of this finding to confirm the diagnosis as well as to remove this finding as a potential embolic source. (2) Elevated troponin: PLAN: The patient does have elevated troponin I levels. They have not significantly changed with respect to a peak/rise and decline. They may be related to his hypertension. He does not appear to have classic symptoms with respect to acute coronary syndrome or any obvious acute electrocardiographic changes. At the moment he will continue his blood pressure evaluation and care. (3) Hypertensive emergency: PLAN: Again his blood pressure was elevated. This may be the source of his symptoms and his cardiac enzyme changes. He is undergoing additional evaluation and care of his blood pressure. (4) Ataxia: PLAN: He was reported as being ataxic. It does not appear he has definitive evidence for any [employer] acute event especially thromboembolic event. This may be related to his findings of marked hypertension. He will continue his noninvasive valuation and care of his blood pressure. Addt'l Comments Overall, at the present time, the patient will be referred to a cardiovascular tertiary care center CT surgery group for additional evaluation and care of the findings compatible with an aortic valve papillary fibroelastoma for consideration for surgical resection. The patient has elected to have his case referred to the [facility] for the aforementioned evaluation and care. Thus his cardiovascular consultation and echocardiographic findings will be referred to Dr. Silver Acevedo of [facility] CT surgery. The patient's case was discussed and reviewed with the patient and Dr. Bryant of the [facility] staff. This note was generated using a voice recognition system and there may be incorrect words, spelling or punctuation that were not noted when reviewing the office note prior to saving. HPI Consult Data Date of Consult: 12/17/21 HPI Narrative HPI Narrative: DAISHA TUCKER, is a 76 year old white male who presents for vascular consultation for concerns of an abnormal transthoracic echocardiogram/aortic valve disorder. He states to the best of his knowledge he has never had any cardiovascular diagnoses given to him in the past. He has been a very active 76-year-old male with respect to his exercise activity at home, swimming, etc. He denies any symptoms suspicious for angina pectoris. There is been no episodes of orthopnea or PND or peripheral pitting edema. He has had no near- syncope or syncope. He states he had an episode where he felt somewhat off balance. There was co ncerns as to whether or not he may have experienced a CVA. He was brought to the [facility] for further evaluation and care. He was noted to be markedly hypertensive at the time. He had abnormal cardiac enzyme levels. He had no acute electrocardiographic changes. He underwent radiologic studies since his admission which of been considered negative for any evidence of thromboembolic events. He is undergone noninvasive cardiovascular studies based upon the initial concern of a thromboembolic event. This included a transthoracic echocardiogram. The results are noted below. Based upon these results there were concerns as to whether or not he may have evidence of a papillary fibroblastoma attached to his aortic valve. Thus he underwent further evaluation with a transesophageal echocardiogram for additional 2D and 3D echocardiographic images. Those findings are noted below. In the interim he states he feels back to normal. His cardiac enzymes were trended and appeared to be without significant rise or decline. They have been thought to be related to an underlying hypertensive event as he has had no symptoms of an acute coronary syndrome and no electrocardiographic changes. Based upon his overall findings he was asked to have a formal cardiovascular consultation to help coordinate future cardiovascular care. PENDING SALE TO [facility] Medical History Asthma HTN (hypertension) Home Medications albuterol sulfate 90 mcg/actuation aerosol inhaler 2 puff inhalation Q4H PRN SOB 12/16/21 [History Last Taken Unknown] fluticasone 250 mcg-salmeterol 50 mcg/dose blistr powdr for inhalation (Wixela Inhub) 1 inh inhalation DAILY 12/16/21 [History Last Taken Unknown] loratadine 10 mg tablet (Claritin) 10 mg PO DAILY Check with primary doctor 12/16/21 [History Last Taken Unknown] Allergy/AdvReac Type Severity Reaction Status Date / Time chocolate flavor AdvReac Rash Verified 12/16/21 07:07 ibuprofen AdvReac Other Verified 12/16/21 07:06 Family History no significant family his Surgical History History of hernia surgery Hx of tonsillectomy Social History (Updated 12/16/21 @ 16:[address] Yasmeen Bryant DO) household members: spouse housing: house Smoking Status: Former smoker alcohol intake: never substance use type: does not use what type of physical activity do you participate in: swimming How many days of moderate to strenuous exercise, like a brisk walk, did you do in the last 7 days: 7 frequency: daily Physical Exam Const alert, oriented x3, no apparent distress and healthy appearing Orientation / Consciousness: awake HEENT normocephalic, head/scalp atraumatic and hearing grossly normal bilaterally Eyes PERRL, EOMs intact bilaterally, conjunctivae normal and no scleral icterus Neck full ROM, supple and no JVD Carotids: normal carotid upstroke Chest inspection of chest normal Resp normal respiratory effort and clear to auscultation bilaterally Cardio regular rate, regular rhythm, S1 normal heart sound and S2 normal heart sound Palpation: normal PMI Rate: regular rate Rhythm: regular rhythm Heart Sounds: S1 normal and S2 normal GI normal to inspection, nondistended, normoactive bowel sounds Extremity no pedal edema Skin no rashes or lesions noted Psych mental status grossly normal Risk Stratification Risk Stratification Applicable: Yes Age >/= 65: Yes >/= 3 CAD Risk Factors (HTN, HLD, DM, family hx of CAD, or current smoker): No Aspirin Use in the Past 7 Days: No Severe Angina (>/= episodes in 24 hours): No EKG ST Changes >/= 0.5mm: No Positive Cardiac Marker: Yes JAVI Risk Stratification Score: 2 JAVI % Risk: 8% Risk Procedure Criteria Type of Procedure Procedure Type: Elective Elective Risks - COVID COVID Risk Discussion: The surgeon/proceduralist and patient have discussed in detail the risk of exposure to and/or potential harm posed by the COVID-19 virus with having a surgery/procedure at this time versus the risk of delaying the surgery/procedure. It is not possible to know either the risk of delaying the surgery or procedure or chance of getting an infection with perfect accuracy, but a joint decision was made between the patient and the surgeon/proceduralist to proceed at this time with the scheduled surgery/procedure as indicated on the consent form. Objective Data Vital Signs: Vital Signs Temp Pulse Resp BP Pulse Ox O2 Del Method 98.7 F 55 L 17 139/64 H 96 Room Air 12/17/21 11:19 12/17/21 11:19 12/17/21 11:19 12/17/21 11:19 12/17/21 11:19 12/17/21 11:19 Oxygen Delivery Method Room Air Weight: 186 lb 11.704 oz Body Mass Index (BMI) 27.6 Intake & Output: Intake and Output for Last 24 Hours 12/15/21 12/16/21 12/17/21 23:59 23:59 23:59 Intake Total 1450 / 1450 Balance 1450 / 1450 Lab / Micro Data Result Diagrams: 12/17/21 05:00 12/17/21 05:00 Labs: Laboratory Results - last 24 hr 12/16/21 13:56: Troponin I High Sens 322 H* 12/17/21 05:00: Sodium 139, Potassium 4.1, Chloride 109 H, Carbon Dioxide 27.0, Anion Gap 3 L, BUN 19 H, Creatinine 0.95, Estim Creat Clear Calc 67.19, Est GFR (MDRD) Af Amer 99, Est GFR (MDRD) Non-Af 82, BUN/Creatinine Ratio 20.0, Glucose 101, Calcium 9.1, Magnesium 2.5, Triglycerides 58, Cholesterol 196, LDL Cholesterol 109, VLDL Cholesterol 12, HDL Cholesterol 75, TSH 1.96 12/17/21 05:00: WBC 6.3, RBC 4.87, Hgb 14.8, Hct 43.8, MCV 89.9, MCH 30.4, MCHC 33.8, RDW Std Deviation 46.5 H, RDW Coeff of Garth 14.0, Plt Count 250, MPV 11.5, Immature Gran % (Auto) 0.200, Neut % (Auto) 52.6, Lymph % (Auto) 30.1, [place] % (Auto) 13.9 H, Eos % (Auto) 2.4, Baso % (Auto) 0.8, Absolute Neuts (auto) 3.3, Absolute Lymphs (auto) 1.90, Nucleated RBC % 0 12/17/21 05:00: Phosphorus 3.1 Micro: Microbiology 12/17/21 06:50 Nasal Secretion SARS-CoV-2 Antigen (Rapid) - Final Cardiology Labs/Tests 12/17/21 05:00: Sodium 139, Potassium 4.1, Chloride 109 H, Carbon Dioxide 27.0, Anion Gap 3 L, BUN 19 H, Creatinine 0.95, Est GFR (MDRD) Af Amer 99, Est GFR (MD RD) Non-Af 82, BUN/Creatinine Ratio 20.0, Glucose 101, Calcium 9.1, Magnesium 2.5, Triglycerides 58, Cholesterol 196, LDL Cholesterol 109, VLDL Cholesterol 12, HDL Cholesterol 75 12/17/21 05:00: WBC 6.3, RBC 4.87, Hgb 14.8, Hct 43.8, MCV 89.9, MCH 30.4, MCHC 33.8, Plt Count 250, MPV 11.5, Immature Gran % (Auto) 0.200, Neut % (Auto) 52.6, Lymph % (Auto) 30.1, [place] % (Auto) 13.9 H, Eos % (Auto) 2.4, Baso % (Auto) 0.8, Absolute Neuts (auto) 3.3, Nucleated RBC % 0 12/17/21 05:00: Phosphorus 3.1 Rhythm: Sinus rhythm EKG: Sinus bradycardia; prolonged [place] interval ECHO: As noted below TRICIA: As noted below Radiography Diagnostic Testing: Radiology Impression Brain MRI 12/16/21 11:24 IMPRESSION: Normal unenhanced MRI of the brain. Electronically Signed: Therese Jama MD at 16:33 EDT Reading Location ID and State: [id number] / Tel , Service support , Echocardiogram 12/16/21 11:24 Interpretation Summary The study was technically difficult. Left ventricular systolic function is normal. The estimated ejection fraction is 60 %. The left atrium is mildly enlarged. There is mild mitral annular calcification. Extension of the mitral annular calcification on the base of the posterior mitral valve leaflet Trivial mitral valve insufficiency. Trivial tricuspid valve insufficiency. 2D echocardiographic images demonstrate a small soft appearing echodensity associated with the aortic valve leaflets on the aortic side of uncertain etiology with a differential diagnosis including papillary fibroelastoma, however, other etiologies such as a vegetation cannot necessarily be excluded. Unable to estimate RV systolic pressure due to insufficient tricuspid regurgitant envelope. No evidence for diastolic dysfunction. Consider further evaluation of the aortic valve findings with TRICIA if clinically indicated. Ordering Physician: Yasmeen Bryant Referring Physician: GLEN BALDERAS Performed By: Harika Church RDCS Transesophageal Echocardiogram 12/16/21 15:48 Interpretation Summary Left ventricular systolic function is normal. The estimated ejection fraction is 65 %. The left atrium is mildly enlarged. There is no sponatenous contrast in the left atrium. No thrombus is detected in the left atrial appendage. There is mild mitral annular calcification. Trivial mitral valve insufficiency. Trivial tricuspid valve insufficiency. 2D and 3D echocardiographic images demonstrate a mobile echodensity appearing to be associated with the right coronary cusp of the aortic valve apparatus measuring approximately 0.7 cm x 1.0 cm in dimension appearing compatible with a papillary fibroelastoma. Bubble contrast study negative for right to left interatrial shunt. Comment: The patient's case was discussed and reviewed with Dr. Bryant of the [facility] staff. Ordering Physician: Yasmeen Bryant Referring Physician: Glen Balderas Performed By: Elmo Hernandez, JANET
--- NOTE | 2021-12-17 14:19 | PN.HOSP_ITS ---
Subjective Subjective Patient reports his unsteady feeling is improved. He has just returned from his TRICIA. Findings were discussed with him by Dr. Hayes. Upon my discussion he would like to pursue aggressive management which would include outpatients evaluation by cardiothoracic surgery. He would like to go to the [facility] so we will have his images pushed there and Dr. Hayes will arrange outpatient follow-up after discharge from here. He is yet to be seen by physical therapy. Objective Data Objective Data Vital Signs: Vital Signs Temp Pulse Resp BP Pulse Ox O2 Del Method 98.7 F 55 L 17 139/64 H 96 Room Air 12/17/21 11:19 12/17/21 11:19 12/17/21 11:19 12/17/21 11:19 12/17/21 11:19 12/17/21 11:19 Oxygen Delivery Method Room Air Weight: 84.7 kg Body Mass Index (BMI) 27.6 Intake & Output: Intake and Output for Last 24 Hours 12/15/21 12/16/21 12/17/21 23:59 23:59 23:59 Intake Total 1450 / 1450 Balance 1450 / 1450 Lab / Micro Data Result Diagrams: 12/17/21 05:00 12/17/21 05:00 Labs: Laboratory Results - last 24 hr 12/16/21 13:56: Troponin I High Sens 322 H* 12/17/21 05:00: Sodium 139, Potassium 4.1, Chloride 109 H, Carbon Dioxide 27.0, Anion Gap 3 L, BUN 19 H, Creatinine 0.95, Estim Creat Clear Calc 67.19, Est GFR (MDRD) Af Amer 99, Est GFR (MDRD) Non-Af 82, BUN/Creatinine Ratio 20.0, Glucose 101, Calcium 9.1, Magnesium 2.5, Triglycerides 58, Cholesterol 196, LDL Cholesterol 109, VLDL Cholesterol 12, HDL Cholesterol 75, TSH 1.96 12/17/21 05:00: WBC 6.3, RBC 4.87, Hgb 14.8, Hct 43.8, MCV 89.9, MCH 30.4, MCHC 33.8, RDW Std Deviation 46.5 H, RDW Coeff of Garth 14.0, Plt Count 250, MPV 11.5, Immature Gran % (Auto) 0.200, Neut % (Auto) 52.6, Lymph % (Auto) 30.1, [place] % (Auto) 13.9 H, Eos % (Auto) 2.4, Baso % (Auto) 0.8, Absolute Neuts (auto) 3.3, Absolute Lymphs (auto) 1.90, Nucleated RBC % 0 12/17/21 05:00: Phosphorus 3.1 Micro: Microbiology 12/17/21 06:50 Nasal Secretion SARS-CoV-2 Antigen (Rapid) - Final Radiography Diagnostic Testing: Radiology Impression Brain MRI 12/16/21 11:24 IMPRESSION: Normal unenhanced MRI of the brain. Electronically Signed: Therese Jama MD at 16:33 EDT Reading Location ID and State: [id number] / Tel , Service support , Echocardiogram 12/16/21 11:24 Interpretation Summary The study was technically difficult. Left ventricular systolic function is normal. The estimated ejection fraction is 60 %. The left atrium is mildly enlarged. There is mild mitral annular calcification. Extension of the mitral annular calcification on the base of the posterior mitral valve leaflet Trivial mitral valve insufficiency. Trivial tricuspid valve insufficiency. 2D echocardiographic images demonstrate a small soft appearing echodensity associated with the aortic valve leaflets on the aortic side of uncertain etiology with a differential diagnosis including papillary fibroelastoma, however, other etiologies such as a vegetation cannot necessarily be excluded. Unable to estimate RV systolic pressure due to insufficient tricuspid regurgitant envelope. No evidence for diastolic dysfunction. Consider further evaluation of the aortic valve findings with TRICIA if clinically indicated. Ordering Physician: Yasmeen Bryant Referring Physician: GLEN BALDERAS Performed By: Harika Church, DELORES Transesophageal Echocardiogram 12/16/21 15:48 Interpretation Summary Left ventricular systolic function is normal. The estimated ejection fraction is 65 %. The left atrium is mildly enlarged. There is no sponatenous contrast in the left atrium. No thrombus is detected in the left atrial appendage. There is mild mitral annular calcification. Trivial mitral valve insufficiency. Trivial tricuspid valve insufficiency. 2D and 3D echocardiographic images demonstrate a mobile echodensity appearing to be associated with the right coronary cusp of the aortic valve apparatus measuring approximately 0.7 cm x 1.0 cm in dimension appearing compatible with a papillary fibroelastoma. Bubble contrast study negative for right to left interatrial shunt. Comment: The patient's case was discussed and reviewed with Dr. Bryant of the [facility] staff. Ordering Physician: Yasmeen Bryant Referring Physician: Glen Balderas Performed By: Elmo Hernandez RCS Physical Exam Const alert, oriented x3, no apparent distress, average body habitus, healthy appearing and well nourished Constitutional Narrative: Very pleasant, older, white male sitting up in bed, at bedside, patient appears comfortable nontoxic HEENT normocephalic, head/scalp atraumatic, hearing grossly normal bilaterally, moist oral mucous membranes and oropharynx normal Resp normal respiratory effort, no retractions, no use of accessory muscles and clear to auscultation bilaterally Auscultation: Negative for crackles, rales, rhonchi or wheezes Cardio regular rate, regular rhythm, S1 normal heart sound, S2 normal heart sound, no murmurs, no rub, no gallops, no clicks and no JVD GI normal to inspection, nondistended, normoactive bowel sounds, soft to palpation and non-tender Extremity no clubbing, cyanosis or edema Extremity Narrative: 2+ pedal pulses Neuro oriented x3, moves all extremities and no focal motor deficits Speech: speech normal Psych affect normal Psych Narrative: Very pleasant and appropriately interactive Assessment & Plan Assessment/Plan (1) Ataxia: (2) Elevated troponin: (3) Hypertensive emergency: PLAN: Plan Ataxia -May be related to markedly elevated blood pressure and hypertensive emergency however need to rule out TIA/stroke -At cardiogram from 12/16/2021 shows EF of 60% with mild left atrial enlargement and trivial mitral valve and tricuspid valve insufficiency, also small appearing echodensity on the aortic valve leaflets on the aortic side of an determined etiology -MRI performed and shows no acute abnormalities -CTA without any marked abnormalities -Total cholesterol is 196/LDL 109/HDL 75 -TSH within normal limit -We will continue statin to get LDL less than 100 -Discontinue baby aspirin -PT/OT consultation pending Hypertensive emergency -Suspect this is etiology for his troponin elevation on presentation -Blood pressure is much better but still elevated -Continue lisinopril 20 mg daily -Add hydrochlorothiazide 25 mg daily -Check a.m. BMP -Goal blood pressure is less than 140/90 given risk factors Troponin elevation -Anticipate related to blood pressure elevation -Cardiac enzymes on admission was 294 with high-sensitivity troponin and then trended up to 335 but then back down to 322 -SPECT related to markedly elevated blood pressure on admission with no significant wall motion abnormalities, chest pain, shortness of breath at baseline -Patient is highly active and exercises daily quite strenuously and has had no symptoms -EKG is normal Papillary fibroelastoma -TRICIA performed today to better clarify abnormality or aortic valve -Is consistent with fibroelastoma -Discussed with cardiology and will place formal consult -Given the size patient will need evaluation by cardiothoracic surgery -Images pushed to [facility] as patient would like to pursue management there -Plan will be to optimize blood pressure while he is here and then arrange for outpatient follow-up Asthma -Continue home budesonide -Continue home as needed albuterol DVT prophylaxis -Lovenox CODE STATUS -Full code Charges/Coding Visit Charges Inpatient E&M: 76695 Subs Hosp L2
[2021-12-17] MEDS: Atorvastatin Calcium 80 MG Tablet PO (21:21)
[2021-12-18 01:14] VITALS: BMI 27.6
[2021-12-18 02:59] VITALS: PULSE 55
[2021-12-18 03:20] VITALS: BP 126/82; PULSE 53; RESP 16; TEMP 36.6; O2SAT 97
[2021-12-18 06:38] LABS: Anion Gap 7 (5-15); BUN 22 mg/dL (7-18); BUN/Creat Ratio 22.8 RATIO (10-20); Calcium,Total 8.7 mg/dL (8.5-10.1); Chloride 105 mmol/L (98-107); Creatinine, Serum 0.97 mg/dL (0.70-1.30); EST Glomerular Filtration Rate 81 mL/min (>60); Est Glom Filt Rate - Afr Amer 97 mL/min (>60); Glucose 97 mg/dL (74-106); Potassium 4.1 mmol/L (3.5-5.1); Sodium Level 135 mmol/L (136-145)
[2021-12-18 06:59] VITALS: PULSE 52
[2021-12-18 07:27] VITALS: PULSE 55; RESP 14; O2SAT 95
[2021-12-18] MEDS: Budesonide Respules 0.5 MG/2 ML AMPUL.NEB. INHALATION (07:27)
[2021-12-18] MEDS: Albuterol 2.5 MG/3 ML VIAL.NEB. INHALATION (07:27)
--- NOTE | 2021-12-18 08:26 | PN.CARD_ITS ---
Subjective Subjective The patient has been up and ambulating around the hallways. Overall he states he feels back to his normal self. He has had no recurrent ataxic type symptoms nor has he had any other acute cardiovascular symptoms or concerns. Objective Data Vital Signs: Vital Signs Temp Pulse Resp BP Pulse Ox O2 Del Method 97.8 F 52 L 16 126/82 H 97 Room Air 12/18/21 03:20 12/18/21 06:59 12/18/21 03:20 12/18/21 03:20 12/18/21 03:20 12/18/21 03:20 Oxygen Delivery Method Room Air Weight: 186 lb 11.704 oz Body Mass Index (BMI) 27.6 Intake & Output: Intake and Output for Last 24 Hours 12/16/21 12/17/21 12/18/21 23:59 23:59 23:59 Intake Total 1450 / 1450 950 / 950 Balance 1450 / 1450 950 / 950 Lab / Micro Data Result Diagrams: 12/17/21 05:00 12/18/21 05:22 Labs: Laboratory Results - last 24 hr 12/18/21 05:22: Sodium 135 L, Potassium 4.1, Chloride 105, Carbon Dioxide 23.0, Anion Gap 7, BUN 22 H, Creatinine 0.97, Estim Creat Clear Calc 65.80, Est GFR (MDRD) Af Amer 97, Est GFR (MDRD) Non-Af 81, BUN/Creatinine Ratio 22.8 H, Glucose 97, Calcium 8.7 Micro: Microbiology 12/17/21 06:50 Nasal Secretion SARS-CoV-2 Antigen (Rapid) - Final Cardiology Labs/Tests 12/18/21 05:22: Sodium 135 L, Potassium 4.1, Chloride 105, Carbon Dioxide 23.0, Anion Gap 7, BUN 22 H, Creatinine 0.97, Est GFR (MDRD) Af Amer 97, Est GFR (MDRD) Non-Af 81, BUN/Creatinine Ratio 22.8 H, Glucose 97, Calcium 8.7 Rhythm: Sinus rhythm/sinus bradycardia Radiography Diagnostic Testing: Radiology Impression Transesophageal Echocardiogram 12/16/21 15:48 Interpretation Summary Left ventricular systolic function is normal. The estimated ejection fraction is 65 %. The left atrium is mildly enlarged. There is no sponatenous contrast in the left atrium. No thrombus is detected in the left atrial appendage. There is mild mitral annular calcification. Trivial mitral valve insufficiency. Trivial tricuspid valve insufficiency. 2D and 3D echocardiographic images demonstrate a mobile echodensity appearing to be associated with the right coronary cusp of the aortic valve apparatus measuring approximately 0.7 cm x 1.0 cm in dimension appearing compatible with a papillary fibroelastoma. Bubble contrast study negative for right to left interatrial shunt. Comment: The patient's case was discussed and reviewed with Dr. Bryant of the [facility] staff. Ordering Physician: Yasmeen rByant Referring Physician: Glen Balderas Performed By: Elmo Hernandez RCS Physical Exam Const alert, oriented x3, no apparent distress and healthy appearing Orientation / Consciousness: awake HEENT normocephalic, head/scalp atraumatic and hearing grossly normal bilaterally Eyes PERRL, EOMs intact bilaterally, conjunctivae normal and no scleral icterus Neck full ROM, supple and no JVD Carotids: normal carotid upstroke Chest inspection of chest normal Resp normal respiratory effort and clear to auscultation bilaterally Cardio regular rate, regular rhythm, S1 normal heart sound and S2 normal heart sound Palpation: normal PMI Rate: regular rate Rhythm: regular rhythm Heart Sounds: S1 normal and S2 normal GI normal to inspection, nondistended, normoactive bowel sounds Extremity no pedal edema Skin no rashes or lesions noted Psych mental status grossly normal Assessment & Plan Assessment/Plan (1) Papillary fibroelastoma of heart: PLAN: The patient has echocardiographic findings compatible with a papillary fibroelastic [place]. It is unclear as to whether or not this is associated with the patient's ongoing concerns versus being a coincidental finding that has been detected during his noninvasive evaluation. His information is being forwarded to the [facility] CT surgery team with a request for consultation/therapy recommendations. (2) Elevated troponin: PLAN: The patient does have elevated troponin I levels. They have not significantly changed with respect to a peak/rise and decline. They may be related to his hypertension. He does not appear to have classic symptoms with respect to acute coronary syndrome or any obvious acute electrocardiographic changes. His blood pressure, on medication, appears to be coming under better control. (3) Hypertensive emergency: PLAN: Again his blood pressure was elevated. This may be the source of his symptoms and his cardiac enzyme changes. As noted above, with medical therapy, his blood pressure appears to be coming under better control. (4) Ataxia: PLAN: He was reported as being ataxic. He states he feels back to his normal self at this time. It does not appear he has definitive evidence for any PRODUCT SAFETY CONSULTANT acute event especially thromboembolic event. This may be related to his findings of marked hypertension. He will continue his noninvasive valuation and care of his blood pressure. Addt'l Comments At the present time the patient will continue cardiovascular risk factor evaluation and care. As noted above his information has been forwarded to the [facility] CT surgery team to establish outpatient cardiovascular consultation for further recommendations regarding the findings of a papillary fibroelastoma. He will be asked to have future outpatient cardiovascular follow-up as well. This note was generated using a voice recognition system and there may be i ncorrect words, spelling or punctuation that were not noted when reviewing the office note prior to saving. Procedure Criteria Type of Procedure Procedure Type: Elective Elective Risks - COVID COVID Risk Discussion: The surgeon/proceduralist and patient have discussed in detail the risk of exposure to and/or potential harm posed by the COVID-19 virus with having a surgery/procedure at this time versus the risk of delaying the surgery/procedure. It is not possible to know either the risk of delaying the surgery or procedure or chance of getting an infection with perfect accuracy, but a joint decision was made between the patient and the surgeon/proceduralist to proceed at this time with the scheduled surgery/procedure as indicated on the consent form.
[2021-12-18 09:20] VITALS: BP 139/59; PULSE 76; RESP 14; TEMP 36.6; O2SAT 98
[2021-12-18] MEDS: hydroCHLOROthiazide 25 MG Tablet PO (09:22)
[2021-12-18] MEDS: Loratadine 10 MG Tablet PO (09:22)
[2021-12-18] MEDS: Enoxaparin 40 MG/0.4 ML Syringe SC (09:22)
[2021-12-18] MEDS: Lisinopril 20 MG Tablet PO (09:22)
--- NOTE | 2021-12-18 10:19 | CASEMGMT ---
Pt is up ambulating independently in halls and states no concerns with going home at time of discharge. Quintin HILL CM
--- NOTE | 2021-12-18 11:15 | PCM.DC.SUM ---
Providers Date of Admission: 12/16/21 Date of Discharge: 12/18/21 Primary Care Physician: Dr. Glen Balderas MD Consultations 12/17/21 10:02 Consult: Cardiology Routine Consulting Provider: Дмитрий Hayes Reason for Consult: fibroelastoma EMERGENT Consult: No MD Notified: Yes Date Notified: 12/17/21 Time Notified: 10:02 Method of Notification: Verbal Reason For Visit: HTN EMERGENCY Diagnosis Discharge Diagnosis (1) Papillary fibroelastoma of heart: Status: Acute Code(s): D15.1 - Benign neoplasm of heart (2) Elevated troponin: Status: Acute Code(s): R77.8 - Other specified abnormalities of plasma proteins (3) Hypertensive emergency: Status: Acute Code(s): I16.1 - Hypertensive emergency (4) Ataxia: Status: Acute Code(s): R27.0 - Ataxia, unspecified Medications at Discharge Home Medications albuterol sulfate 90 mcg/actuation aerosol inhaler 2 puff inhalation Q4H PRN SOB 12/16/21 fluticasone 250 mcg-salmeterol 50 mcg/dose blistr powdr for inhalation (Wixela Inhub) 1 inh inhalation DAILY 12/16/21 loratadine 10 mg tablet (Claritin) 10 mg PO DAILY Check with primary doctor 12/16/21 aspirin 81 mg chewable tablet 81 mg PO BREAKFAST #0 tabs 12/18/21 atorvastatin 20 mg tablet 20 mg PO QHS #30 tabs 12/18/21 hydrochlorothiazide 25 mg tablet 25 mg PO DAILY #30 tabs 12/18/21 lisinopril 20 mg tablet 20 mg PO DAILY #30 tabs 12/18/21 Hospital Course Operations None Procedures 2-D Echocardiogram, Transesophageal Echo and - (MRI brain) Summary of Care Provided Minutes Spent on Discharge: 37 Hospital Course: Mr. Meredith is a 76-year-old male who presented to the emergency department [facility] on 12/16/2021 complaining of feeling wobbly. He reported that upon wakening on the day of admission he was feeling a bit unstable but did not fall down. His confirmed that he was quite unstable upon getting up. Patient indicated that he had no weakness but it more as a feeling that he was on a boat in the ocean. He denied any vertigo. He also complained at the tips of his left thumb and index finger felt a bit tingly but not numb. He denied any other paresthesias or any focal muscle weakness. His indicated that this happened 1 time previously over the summer but went away independently and he did not pursue treatment at that time. He had previously been diagnosed with hypertension and had been on lisinopril which was converted to amlodipine but both these medications had subsequently been discontinued as he reported his blood pressure normalized. He indicated he has a history of asthma and had a visit several months ago for his asthma at which time his blood pressure was noted to be elevated however they attributed this to his asthma flare. Vital signs at the time of presentation showed a temperature of 97.7, heart rate was 60, blood pressure was 190/76 and stayed elevated throughout his emergency department course, respiratory rate was 17, and oxygen saturation was 98 200% on room air.? BC was overall unremarkable other than a mild monocytosis.? Coags were normal.? His chemistry panel was unremarkable.? His initial troponin was 294 with a repeat at 335.? EKG showed sinus bradycardia with a ventricular rate of 59 bpm and a first-degree AV block but no ST-T wave changes consistent with acute ischemia.? His chest x-ray was unremarkable.? CTA of his head and neck showed no occlusions or marked calcifications but was positive for a hypoplastic left A1 segment and a small left vertebral artery. He was admitted to the PCU and TIA/stroke work-up was pursued. Given his markedly elevated blood pressure he was initiated on lisinopril at the time of admission. His blood pressure did improve with this however remained elevated above goal and during his hospital course hydrochlorothiazide 25 mg was initiated as well. His blood pressure markedly improved and was at goal at the time of discharge with hydrochlorothiazide 25 mg daily and lisinopril 20 mg daily. Prescriptions for these were sent to his pharmacy upon discharge for 1 month supply and encouraged follow-up with intermittent blood pressure checks at home were encouraged. He was placed on a statin and aspirin as well at the time of admission. Total cholesterol was obtained and found to be 196 with an LDL of 109 and an HDL of 75. He was maintained on atorvastatin 20 mg daily at discharge. MRI was negative for any acute findings. His echocardiogram showed an EF of 60% with mild left atrial enlargement as well as a small soft appearing echodensity on the aortic side of the aortic valve with uncertain etiology. Given the abnormalities noted on the TTE TRICIA was performed and he was found to have an EF of 65% with mild left atrial enlargement no thrombus in the left atrial appendage and 2D and 3D echocardiographic images demonstrated a mobile echodensity on the right coronary cusp of the aortic valve apparatus that measured 0.7 x 1 cm compatible with a papillary fibroblastoma. Given these findings a cardiology consult was placed. Given the size of the fibroblastoma cardiology has recommended follow-up at a tertiary center for CT surgery evaluation for consideration for surgical resection. Cardiology will follow-up as an outpatient for this. Given the concerns that this could be a potential embolic source he was maintained on aspirin at discharge 81 mg daily. His gait disturbance/ataxia and unsteadiness had resolved at the time of discharge. I suspect this is likely related to his elevated blood pressure. We also feel that his transient troponin elevation was related to hypertensive emergency as well. Family would like to follow-up at [facility] and images performed here were pushed to their facility. He was discharged home in stable condition on 12/18/2021. He will have follow-up with his primary care physician within the next week and this is already scheduled. We have recommended a BMP be performed within the next week given the new initiation of lisinopril and hydrochlorothiazide. Lab here after the initiation remained stable. He is also going to follow-up with Dr. Hayes after discharge and their office will call for an appointment. Discharge diagnoses: Ataxia-resolved Hypertensive emergency-resolved Troponin elevation secondary to hypertension Papillary fibroelastoma History of asthma Hyperlipidemia Physical Exam Const alert, oriented x3, no apparent distress, average body habitus, healthy appearing and well nourished Constitutional Narrative: Very pleasant, older, white male sitting up on edge of bed, at bedside, patient appears comfortable, nontoxic, seen walking the hallways earlier without any gait disturbance General Appearance: cooperative, comfortable, well kempt and well developed Orientation / Consciousness: awake, oriented to person, oriented to place and oriented to time Exam Limitations: no limitations HEENT normocephalic, head/scalp atraumatic, hearing grossly normal bilaterally, moist oral mucous membranes and oropharynx normal HEENT Narrative: Dentition is good, Mallampati is 2, no thrush Eyes PERRL, EOMs intact bilaterally and conjunctivae normal Eyes Narrative: No scleral icterus Neck no lymphadenopathy, supple, no JVD and no carotid bruits Neck Narrative: Trachea midline, no thyroid enlargement Resp normal respiratory effort, no retractions, no use of accessory muscles and clear to auscultation bilaterally Auscultation: Negative for crackles, rales, rhonchi or wheezes Cardio regular rate, regular rhythm, S1 normal heart sound, S2 normal heart sound, no murmurs, no rub, no gallops, no clicks and no JVD GI normal to inspection, nondistended, normoactive bowel sounds, soft to palpation and non-tender Extremity no clubbing, cyanosis or edema Extremity Narrative: 2+ pedal pulses Skin no wounds, skin turgor normal, no jaundice, no petechiae and no mottling Skin Narrative: Scattered actinic keratoses and previously his sun exposed areas Neuro oriented x3, CN's II-XII intact bilaterally, moves all extremities, no focal motor deficits and no sensory deficits noted Neuro Narrative: Gait is normal Speech: speech normal Motor Exam: strength 5/5 throughout Psych affect normal Psych Narrative: Very pleasant and appropriately interactive Weight / BMI Weight Weight: 84.7 kg Body Mass Index (BMI) 27.6 ABG / Lab / Microbiology Data Result Diagrams: 12/17/21 05:00 12/18/21 05:22 Laboratory: Laboratory Results - last 24 hr 12/18/21 05:22: Sodium 135 L, Potassium 4.1, Chloride 105, Carbon Dioxide 23.0, Anion Gap 7, BUN 22 H, Creatinine 0.97, Estim Creat Clear Calc 65.80, Est GFR (MDRD) Af Amer 97, Est GFR (MDRD) Non-Af 81, BUN/Creatinine Ratio 22.8 H, Glucose 97, Calcium 8.7 Microbiology: Microbiology 12/17/21 06:50 Nasal Secretion SARS-CoV-2 Antigen (Rapid) - Final Radiography Diagnostic Testing: Radiology Impression Transesophageal Echocardiogram 12/16/21 15:48 Interpretation Summary Left ventricular systolic function is normal. The estimated ejection fraction is 65 %. The left atrium is mildly enlarged. There is no sponatenous contrast in the left atrium. No thrombus is detected in the left atrial appendage. There is mild mitral annular calcification. Trivial mitral valve insufficiency. Trivial tricuspid valve insufficiency. 2D and 3D echocardiographic images demonstrate a mobile echodensity appearing to be associated with the right coronary cusp of the aortic valve apparatus measuring approximately 0.7 cm x 1.0 cm in dimension appearing compatible with a papillary fibroelastoma. Bubble contrast study negative for right to left interatrial shunt. Comment: The patient's case was discussed and reviewed with Dr. Bryant of the [facility] staff. Ordering Physician: Yasmeen Bryant Referring Physician: Glen Balderas Performed By: Elmo Hernandez RCS D/C Instructions Discharge Diet: No restrictions Discharge Activity: Return to Normal Activity Meaningful Use Info Meaningful Use Diagnoses (Choose all that apply): None applicable Discharge Plan Admission Admit Date/Time: 12/16/21 11:19 Primary Reason for Your Visit: Unsteadiness/Ataxia Attending Provider: Yasmeen Bryant Primary Care Provider: Glen Balderas Consulting Providers: Дмитрий Hayes Instructions Additional Instructions / Restrictions: 1. Please obtain a basic metabolic profile within the next week --> call primary care physician request order 2. Please monitor blood pressure periodically at home after discharge 3. No overt restrictions and activity and you may continue to do what you feel comfortable doing Discharge Orders/Prescriptions Prescriptions: New aspirin 81 mg Tablet,Chewable 81 mg PO BREAKFAST Qty: 0 0RF hydrochlorothiazide 25 mg Tablet 25 mg PO DAILY Qty: 30 0RF lisinopril 20 mg Tablet 20 mg PO DAILY Qty: 30 0RF atorvastatin 20 mg tablet 20 mg PO QHS Qty: 30 0RF Continued albuterol sulfate 90 mcg/actuation HFA aerosol inhaler 2 puff INHALATION Q4H PRN (Reason: SOB) Label Comments: 2 PUFFS INHALED ORALLY EVERY 4 HOURS NEEDED fluticasone propion-salmeterol [Wixela Inhub] 250-50 mcg/dose blister with device 1 inh INHALATION DAILY loratadine [Claritin] 10 mg Tablet 10 mg PO DAILY Referrals / Follow Up: Дмитрий Hayes MD [Med Staff - Active Staff] - See Referral Note (Office to call you with an appointment-Dr. Hayes would like to follow-up with you as an outpatient) Glen Balderas MD [Primary Care Provider] - See Referral Note (As already scheduled) Disposition Disposition (needs filled in before D/C Order can be placed): Home, Self Care Charges/Coding Visit Charges Inpatient E&M: 84671 Disch Hosp
[2021-12-18 11:28] VITALS: BMI 27.6
== END 2021-12-18 12:36 | disposition home or self-care (01) | DRG 305 ==
LOC: ED 11:41 → PCU 11:50
PROVIDERS: Admitting Provider Internal Medicine; Emergency Provider Emergency Medicine; PCP Family Medicine; Visit Provider Internal Medicine
DX: I16.1 Hypertensive emergency (principal); D15.1 Benign neoplasm of heart; I10 Essential (primary) hypertension; E78.5 Hyperlipidemia, unspecified; J45.909 Unspecified asthma, uncomplicated; Z79.51 Long term (current) use of inhaled steroids; Z79.82 Long term (current) use of aspirin; Z79.899 Other long term (current) drug therapy; Z87.891 Personal history of nicotine dependence
CPT/HCPCS: 36415; 70496; 70498; 70551; 71045; 80048; 80053; 80061; 82962; 83735; 84100; 84443; 84484; 85025; 85610; 85730; 87426; 93005; 93306; 93312; 93320; 93325; 94640; 94762; 99284; J7030; J7040; Q9957; Q9967; A4216; C8929

== ENCOUNTER → 2022-02-04 | Outpatient (CLI) | payer MEDICARE, SELFPAY ==
--- NOTE | 2022-02-04 12:35 | RAD_ITS ---
STUDY: X-RAY CHEST REASON FOR EXAM: Male, 76 years old. 2 weeks s/p bypass surgery @ [facility] -- Please fax results to Dr. Silver Acevedo [facility] TECHNIQUE: XR Chest 2 Views COMPARISON: 12.16.21 FINDINGS: There is atherosclerotic calcification of the aortic arch with tortuosity. There are diffuse degenerative changes of the visualized thoracic spine. There is degenerative osteoarthritis of the bilateral shoulders. There is no demonstrated pleural abnormality. There are multiple median sternotomy wires. Normal size heart. Normal mediastinum and cipriano. Normal visualized pulmonary arteries. There is no demonstrated abnormality of the visualized soft tissue structures of the upper abdomen. RAD/Chest PA and Lateral IMPRESSION: There are no acute findings. Electronically Signed: Hal Moser MD at 17:54 EST ,
[2022-02-04 12:53] LABS: Hematocrit 34.5 % (40-54); Mean Corp Hgb Conc 31.9 g/dL (32-36); Mean Corpuscular Hgb 30.1 pg (27.0-32.0); Mean Corpuscular Volume 94.3 fL (80-94); Mean Platelet Vol. 10.2 fl (6.2-12.0); Platelet Count 616 K/mm3 (150-450); RBC Distribution Width CV 14.2 % (11.6-14.6); RBC Distribution Width SD 49.1 fl (35.1-43.9); Red Blood Count 3.66 M/mm3 (4.6-6.2); White Blood Count 7.1 K/mm3 (4.4-11.0)
[2022-02-04 13:19] LABS: ALB/GLOB Ratio 0.7 RATIO (0.9-2.4); AST(SGOT) 25 U/L (15-37); Alanine Aminotransfer ALT/SGPT 51 U/L (16-61); Albumin, Serum 3.4 g/dL (3.2-5.0); Alkaline Phosphatase 96 U/L (45-117); Anion Gap 3 (5-15); BUN 20 mg/dL (7-18); Calcium,Total 9.3 mg/dL (8.5-10.1); Chloride 100 mmol/L (98-107); Creatinine, Serum 0.95 mg/dL (0.70-1.30); EST Glomerular Filtration Rate 82 mL/min (>60); Est Glom Filt Rate - Afr Amer 99 mL/min (>60); Globulin 4.6 g/dL (2.2-4.2); Glucose 101 mg/dL (74-106); Potassium 4.3 mmol/L (3.5-5.1); Sodium Level 134 mmol/L (136-145)
== END | disposition home or self-care (01) ==
PROVIDERS: PCP Family Medicine; Visit Provider Nurse Practitioner Family
DX: I10 Essential (primary) hypertension (principal); Z95.1 Presence of aortocoronary bypass graft; I25.10 Atherosclerotic heart disease of native coronary artery without angina pectoris
CPT/HCPCS: 36415; 71046; 80053; 85027

== ENCOUNTER → 2022-03-05 | Outpatient (CLI) | payer MEDICARE, SELFPAY ==
--- NOTE | 2022-03-05 09:26 | PCM.CR.HP2 ---
CR - History & Physical - General Arrival date:: 03/05/22 Arrival time:: 09:26 Date of Referral:: 02/04/22 Date of CR Evaluation:: 03/05/22 Referring Physician: Dr. Дмитрий Hayes Primary Diagnosis: CABG - History of Present Cardiac Event Onset Date: Enter Onset Date of cardiac illnesses in Comment field below Coronary Artery Bypass Graft:: Yes - 01/19/22 PORTILLO--LAD, SVG-OM1-OM3, SVG-PDA, valve repair - Sleep Disorder Evaluation Hx of Sleep Apnea: No Do you snore loudly (louder than talking or can be heard through closed doors)?: No Do you often feel tired/ fatigued/ sleepy during daytime?: No Has anyone observed you stop breathing during sleep?: No History of Hypertension (for STOP score): Yes STOP Results: Negative - Medications Home Medications: Ambulatory Orders Medication Instructions Recorded aspirin 81 mg chewable tablet 81 mg PO BREAKFAST #0 tabs 12/18/21 atorvastatin 20 mg tablet 20 mg PO QHS #30 tabs 12/18/21 multivitamin 1 tab PO DAILY 02/04/22 lisinopril 2.5 mg tablet 2.5 mg PO DAILY #90 tabs 02/16/22 metoprolol succinate 25 mg 25 mg PO BID #180 tabs 02/16/22 tablet,extended release 24 hr pantoprazole 20 mg tablet,delayed 20 mg PO DAILY #90 tabs 02/16/22 release - Allergies Allergies/Adverse Reactions: Allergies chocolate flavor Adverse Reaction (Verified 02/04/22 13:19) Rash ibuprofen Adverse Reaction (Verified 02/04/22 13:19) Other Advanced Directives - Advanced Directives Power of Web Site Specialist: Yes Living Will: Yes Advance Directives Information Provided: Yes Advance Directives on File: Yes DNR Order?:: No Past Medical History - Covid-19 Screening 65 years or older:: Yes Has a serious heart condition:: Yes - Past Medical Illness Medical History: Past Medical History (Last Reviewed 02/04/22 @ 14:03 by Kendrick White NP, METAL SPRAYING MACHINE OPERATOR-C) Asthma J45.909 Hyperlipidemia E78.5 Mixed hyperlipidemia E78.2 Papillary fibroelastoma of heart D15.1 Postoperative atrial fibrillation I97.89, I48.91 - Past Surgical History Surgical History: Past Surgical History (Last Reviewed 02/04/22 @ 14:03 by Kendrick White METAL SPRAYING MACHINE OPERATOR, METAL SPRAYING MACHINE OPERATOR-C) History of coronary artery bypass surgery Onset Date: ~01/19/22 Z95.1 CABG x4- PORTILLO-LA, SVG OM1, SVG-OM3, SVG-PDA; removal of neoplasm consistent in appearance papillary fibroelastoma Dr. Silver Acevedo [facility] 01/12/22 History of hernia surgery Z98.890, Z87.19 Hx of tonsillectomy Z90.89 S/P CABG x 4 Z95.1 plus removal of fibroelastoma from aortic valve per Dr. Silver Acevedo [facility] Social History - Smoking History Smoking Status: Former smoker Years Smokin Packs Smoked per Day: 1 - Alcohol Use Alcohol Usage: Yes - socially - Occupation Occupation (List type of work in comments):: Retired - Hobbies, Recreation, Social Activities Hobbies: Exercise Recreational Activities: I am able to engage in all my recreational activities Social Environment - Status Marital Status: - Current Living Arrangements Living Environment:: Spouse - Children How many children do you have?: 3 Do any of your children live nearby?: Yes - Safety Do you feel safe in your surroundings?: Yes - Assistance Do you need any assistance at home?: no Review of Systems - Review of Systems Hints: Right click = Denies (Slash). Left click = Reports ([place]) Review of Present Symptoms: Reports: Shortness of Breath with Exertion, Operative Discomfort - incisional, Appetite - Normal, Sleep - Normal. Denies: Shortness of Breath at Rest, PVD, Angina, Wound Healing, Dizziness/Lightheadedness, Fatigue, Heart Arrhythmia/Irregularities, Appetite - Special Diet, Sexual Changes - Pain Is Patient Pain Free?: Yes Risk Factor Assessment - Vital Signs Pulse Ox: 100 - Pulse Pulse Rate: 53 Pulse Rhythm: Regular - Hypertension Blood Pressure Sitting - Left Arm: 142/70 - Diabetes Nutrition Referral for Diabetes: No - Obesity Height: 5 ft 9 in Weight:: 84.368 kg Weight in Pounds: 186.0 lbs Body Mass Index (BMI): 27.4 Nutritional Referral for Obesity: No - Physical Inactivity Physical Inactivity: Reg Exercise 30 min/day - Risk Stratification Risk Guidelines: Moderate Risk: Risk Factor for Smoking, Risk Factor for Diabetes, Risk Factor for Obesity, Risk Factor for Sedentary Lifestyle, Risk Factor for Depression, Highest Risk: Risk Factor for Dyslipidemia, Risk Factor for Hypertension Motivation - Motivation to Participate On a scale of 1 to 10, how prepared are you to commit to attending program?: 10 What do you see as barriers to successfully being able to complete the program?: nothing What do you see as the benefits of succesfully completing the program? In other words, what do you hope to get out of participating in the program?: more energy, improved health, learn limitations Are there issues you are dealing with that will interfere with completing the program?: no Do you have a spouse or signficant other, family or friends who will help support you to complete the program?: yes
[2022-03-05 10:19] VITALS: BP 142/70; PULSE 53; O2SAT 100; BMI 27.4
--- NOTE | 2022-03-05 10:20 | CR.ITP_ITS ---
Diagnosis - General Information Admitting Diagnosis: CABG, Valve repair Personal Learning Style:: Audio/Visual Stage of change r/t lifestyle modifications:: Contemplation Gave educational material for:: Treating Heart Disease, Emotions & Heart Di sease, Stress Management & Relaxation, Sleep Disorders & Heart Disease, How The Heart Works, What it means to have Heart Disease, How Coronary Artery Disease is Diagnosed, Heart Procedures, What Heart Medications Do, Risk Factors & Modifications, Living an Active Life, Nutrition - Education/Goals Cardiac Rehabilitation Goals: 1. Maintain the individual as the primary focus of care. 2. To improve the patient's quality of life. 3. Identification of cardiac risk factors and provide cardiac risk factor management. 4. Enhance the psychosocial status of the patient. 5. Reconditioning enough to allow the patient to resume customary activities. 6. Control symptoms of cardiac disease Personal Goals: Initial Assessment: Improve knowledge of cardiac disease, Improve diet and eating habits (eat healthier), Control risk factors (learn risk factor modification) Scale for measuring improvement of personal goals: Enter appropriate number in Comments. 2 = Unchanged. 3 = Slightly Better. 4 = Moderate Improvement. 5 = Met my Goal - Diagnosis & Disease Process Outcomes/Goals: Pt IDs own risk factors & lifestyle modifications by Session 10, Verbalizes symptoms of angina & response by session 3., Pt independently manages, Other Additional Outcomes/Goals: Plan/Interventions: Assist Pt to ID & engage in lifestyle modification to reduce CVD risk, Instruct on individual risk factors, Review symptoms of angina & emergency actions, Review secondary diagnosis & identify educational needs., Other see comment 30 day Reassessments:: Not Met 30 day Reassessments:: Not Met 30 day Reassessments:: Not Met 30 day Reassessments:: Not Met Final Reassessments:: Not Met - Safety Referral to Physical Therapy: No Referral to [facility] Case Management: No Fall Risk Assessed:: Yes Assistive Devices:: None Exercise - Initial Assessment - Visit Date of Eval: 03/05/22 - initial eval Mets: Pre-: >3 METS for 30 minutes by discharge, >5 METS for 30 minutes by discharge, >7 METS for 30 minutes by discharge, Unable to meet goal due to: (see comment below) - Physician Prescribed Exercise Modalities: Treadmill, Airdyne, NuStep, SciFit, Lateral Nursing Program Chair Frequency: 3x/week for 12 weeks [36 sessions] Intensity: 60-80% of age predicted maximum heart rate reserve Current METSs:: 3 Target Heart Rate:: 94-108 Resting Blood Pressure: 142/70 EKG Type: SR 1st degree AV block, ectopic ventricular beats - Outcomes & Goals Goals:: Verbalizes understanding of THR, RPE & goal METS by session 6, Documents in home exercise log/reports 30 min aerobic 5 day/wk by DC, Demonstrates accurate pulse taking by DC, Other additional outcome/goals: see below - Intervention & Plan Exercise Program Goals: Instruct on personal THR & RPE, Instruct on MET level & personal MET goal, Show patient to take own pulse /validate performance until accurate, Instruct on home exercise, Other additional plan/int - Physical Activity Home Exercise Physical Activity - Home Exercise: Safe Exercise, Warm-up, Self-monitoring, Cool-Down, Home Exercise > 30 min Daily, Sitting Time <3 hours/daily - Outcomes & Goals Outcomes/Goals: Demonstrates correct Warm-up/exercise Cool-Down (S3) if = 2.5 METs, Verbalizes symptoms of exercise intolerance by Session 3 (S3), Demonstrate safe equipment use (S3) & follows exercise prescrition (6), Other: See below - Intervention & Plan Plan/Intervention: Instruct warm-up & cool-down if exercising at > 2 METs, Instruct on symptoms of exercise intolerance & actions to take, Instruct & monitor on saf, Assess intial functional capacity & safety risk, Other See below Nutrition - Initial Assessment - Program Goals Nutrition Program Goals: LDL <100 optimal. 100 - 129 Near optimal. 130 - 159 Borderline High. 160 - 189 High. Total Cholesterol <200 desirable. 200 - 239 Borderline High. >/= 240 High. HDL < 40 Low >/=60 High. Triglycerides <150 desirable. <199 optimal. VlDL 5 - 40. HgbA1C <7%. BMI <25 Patient has diagnosis of Hyperlipidemia (ICD E78)?: Yes - Visit Date of Assessment:: 03/05/22 - initial eval - Cholesterol/Lipids (Other Core Measures) Determine presence & major risk factors that modify LDL goal: Cigarette smoking, Hypertension or hypertensive medication, Low HDL cholesterol <40 mg/dL*, Family history of premature CHD in Male < 55 years: female <65 yearsFa, Age men > 45 years; women >/= 55 years Outcomes/Goals: Pt IDs own risk factors & lifestyle modifications by Session 10, Verbalizes symptoms of angina & response by session 3., Pt independently manages, Other Additional Outcomes/Goals: Intervention/Plan: Advocate for lipid panel cholesterol medication if applicable, Instruct on personal lipid levels & lipid goals/NCEP guidelines, Instruct on cholesterol, Other additional plan/int Referral to dietitian:: No - Diabetes (Other Core Measures) Diabetes Type: Not Applicable - Weight Mgt (Other Care) Height: 5 ft 9 in Weight:: 84.368 kg BMI: 27.4 Outcomes/Goals: Pt sets, maintains & shows weight loss goal & trend during rehab, Other additional outcomes/goals Intervention/Plan: Instruct on ideal BMI & set weight loss goal w/patient, Assist pt to ID & incorporate diet changes for weight loss by S9, Refer to Structured Weight Loss program as appropriate, Encourage goal of using 250- 300dcal per session for weight loss, Other additional plan/interventions - Healthy Eating Habits Will attend diet classes:: Yes Outcomes/Goals:: Consume diet rich in vegs,fruits,whole grain/high fiber,fish,lean meat, Limit sat/trans fats,cholesterol & added salts & sugars, Other additional outcome/goals: Intervention/Plan:: Assess current eating habits, Other Additional plan/interventions - Education Gave educational materials for:: Signs & symptoms of hypoglycemia, Signs & symptoms of hyperglycemia, Relate diabetes to coronary artery disease, Healthy eating Nutrition - 30-Day Assessment Nutrition - 60-Day Assessment Nutrition - 90-Day Assessment Nutrition - Final Assessment Core - Initial Assessment - Visit Date of Eval: 03/05/22 - initial eval - Medication Compliance Preventative Medication(s):: Aspirin, JAMEEL inhibitor, Statin/lipid, Beta [place] H/O mental health issues: depression, anxiety, or addiction?: No Doesn?t believe in the benefits of treatment?: No Believes medications are unnecessary or harmful?: No Has a concern about medication side effects?: No Expresses concern over the cost of medications?: No Outcomes/Goals: Verbalizes medications,desired effect & common side effects @ DC, Pt self-reports following medication regimen, Keeps card in wallet w/medications listed by DC, Other additional outcome/goals: Interventions/plans: Instruct on medication effects & side effects, Review medication list w/patient every two weeks, Instruct importance of taking meds as ordered & assist problem solving, Other additional - Tobacco Use Tobacco Use: Non-smoker How long ago did you quit using tobacco products?: Greater than or equal to 6 months ago Do you use smokeless tobacco?: No Outcomes/Goals: Smoking cessation achieved or maintained by discharge, Identify aids/strategies for achieving smoking cessation by session 6, Other additional outcome/goals Interventions/plan: Instruct on effects of smoking & provide smoking cessation resource, Assist pt to set quit date & provide encouragement, Assist pt to de velop strategies to achieve/maintain quit date, Assist pt w/nicotine replacement & medication for cessation success, Other additional plan/interventions - Hypertension Hypertension Diagnosis:: Hypertension ICD-10 I10 Resting Blood Pressure:: 142/70 [place] [employer] Hypertension Guidelines: [place] [employer] Hypertension Guidelines. Normal BP Less than 120/80. Elevated BP 120/80. Hypertension Stage 1: BP 130-139/80-89. Hypertesnion Stage 2: BP 140 or higher/90 or higher. Hypertension Crisis: BP higher than 180/120 Outcomes/Goals: Able to verbalize/achieve optimal blood pressure <130/80, Incorporates diet changes & exercise for blood pressure control by DC, Other additional outcomes/goals Interventions/plan: Instruct on optimal blood pressure, hypertension & medications, Instruct on effects of sodium, alcohol, stress, exercise &hypertension, Other additional plan/interventions - Tobacco Cessation Referral Smoking Cessation Referral:: No Individual Education/Counseling:: No Education Schedule Given:: Yes Core - 30-Day Assessment Core - 60-Day Assessment Core - 90 Day Assessment Core - Final Assessment Psychosocial - Initial Assess - VIsit Date of Eval: 03/05/22 - initial eval History of previous Mental disease:: No - Outcomes/Goals: See list Psychosocial Outcomes/Goals:: ID's personal stressors & 2 strategies to manage stress by discharge, Other Additional outcome/goals: - Intervention/Plan: See List Interventions/Plan:: Assess stressors,coping strategies & signs of derpression on admission, Instruct/assist pt to develop coping & personal stress Mgt strategies, Refer to Behavioral Health if appropriate, Refer to Physician if appropriate, Instruct patient to recognize signs & symptoms of depression, Instruct patient to recog, Other additional plan/intervention Psychosocial - 30-Day Assess Psychosocial - 60-Day Assess Psychosocial - 90-Day Assess Psychosocial - Final Assessmen Patient Health Questionnaire Initial Assessment 1. Little interest or pleasure in doing things: Not at all 2. Feeling down, depressed, or hopeless: Not at all 3. Trouble falling or staying asleep, or sleeping too much: Not at all 4. Feeling tired or having little energy: Not at all 5. Poor appetite or overeating: Not at all 6. Feeling bad about yourself -- or that you are a failure or have let yourself or your family down: Not at all 7. Trouble concentrating on things, such as reading the newspaper or watching television: Not at all 8. Moving or speaking so slowly that other people could have noticed. Or the opposite - being so fidgety or restless that you have been moving around a lot more than usual: Not at all 9. Thoughts that you would be better off , or of hurting yourself in some way: Not at all How difficult have these problems made it for you to do your work, take care of things at home, or get along with other people?: Not difficult at all Total Score: 0 LAMONT-Q SV Test - Statements CAD is a disease of the arteries in the heart: True Examples of risk factors for heart disease: True Angina is chest pain or discomfort: True The benefits of resistance training include: True Eating more meat and dairy products: False Anti-platelet medications such as aspirin are important: I Don't Know The only effective way to manage stress: False An exercise warm-up slowly increases heart rate: True Prepared, processed foods usually have high sodium: True Depression is common after a heart attack: True The statin medications lower cholesterol: True To control blood pressure, lower the amount of sodium: True If someone gets chest discomfort during walking: False Transfats are partially hydrogenated vegetable oils: True Sleep apnea that is not treated increases the risk: I Don't Know To control cholesterol, one should become a vegetarian: False Someone knows if he/she is exercising at the right level: True Diabetes cannot be prevented with exercise & health eating: False Stress is a large risk for heart attack: I Don't Know A diet that can help lower blood pressure is rich in: True - Total Score Total Correct Responses: 16 Self-Efficacy We would like to know how confident you are in doing certain activities. Please select your confidence level for:: Select your confidence level for the following using the scale 1-10 where 1 is not at all confident and 10 is totally confident. Your score is the average of all 6 responses. Fatigue: How confident are you that you can keep the fatigue caused by your disease from interfering with the things you want to do? Physical Discomfort or Pain: How confident are you that you can keep the physical discomfort or pain of your disease from interfering with the things you want to do? Emotional Distress: How confident are you that you can keep the emotional distress caused by your disease from interfering with the things you want to do? Other Symptoms or Health Problems: How confident are you that you can keep other symptoms or health problems from interfering with the things you want to do? Different Tasks and Activities: How confident are you that you can do the different tasks and activities needed to manage your health condition so as to reduce your need to see a doctor? Medication: How confident are you that you can do things other than just taking medication to reduce how much your illness affects your everyday life? Initial Assessment We would like to know how confident you are in doing certain activities. Please select your confidence level for:: Select your confidence level for the following using the scale 1-10 where 1 is not at all confident and 10 is totally confident. Your score is the average of all 6 responses. Fatigue: How confident are you that you can keep the fatigue caused by your disease from interfering with the things you want to do? Select Number: 10 Physical Discomfort or Pain: How confident are you that you can keep the physical discomfort or pain of your disease from interfering with the things you want to do? Select Number: 10 Emotional Distress: How confident are you that you can keep the emotional distress caused by your disease from interfering with the things you want to do? Select Number: 10 Other Symptoms or Health Problems: How confident are you that you can keep other symptoms or health problems from interfering with the things you want to do? Select Number: 10 Different Tasks and Activities: How confident are you that you can do the different tasks and activities needed to manage your health condition so as to reduce your need to see a doctor? Select Number: 10 Medication: How confident are you that you can do things other than just taking medication to reduce how much your illness affects your everyday life? Select Number: 10 Total Score:: 10 Nutrition Survey - Nutrition Survey Initial Have you lost >10 lbs over the past 2 months without trying?: No Are you following a special diet at home for diabetes, low fat, or low salt?: No Are you interested in meeting with a dietitian for help understanding your diet?: No Do you eat less than 3 meals a day?: No Do you eat fatty meats (torres, sausage, ribs, etc), fried foods, desserts, large amounts of salad dressings, margarine, butter, or cheese most days?: No Do you have food allergies? [Enter types in comment field]: Yes Do you eat in restaurants more than 3 times a week?: No Do you season food with salt, seasoning salt, or garlic salt?: No Do you used canned, boxed, frozen meals, or soups, seasoning packets?: Yes Total Score:: 2
[2022-03-05 10:32] VITALS: BP 142/70; BMI 27.4
== END | disposition home or self-care (01) ==
LOC: CR 09:19
PROVIDERS: PCP Family Medicine; Visit Provider Internal Medicine Cardiovascular Disease
DX: I25.10 Atherosclerotic heart disease of native coronary artery without angina pectoris (principal); Z95.1 Presence of aortocoronary bypass graft

== ENCOUNTER → 2022-03-16 | Outpatient (CLI) | payer MEDICARE, SELFPAY ==
[2022-03-05 10:32] VITALS: BMI 27.4
[2022-03-16 12:33] LABS: PSA,Total - Annual Screen 1.15 ng/mL (0.00-4.00)
== END | disposition home or self-care (01) ==
PROVIDERS: PCP Family Medicine; Visit Provider Family Medicine
DX: Z12.5 Encounter for screening for malignant neoplasm of prostate (principal)
CPT/HCPCS: 36415; 84153; G0103

== ENCOUNTER 2022-03-19 08:00 | Outpatient (RCR) | payer MEDICARE, SELFPAY ==
[2022-03-05 10:32] VITALS: BMI 27.4
== END 2022-03-30 23:59 ==
LOC: CR 08:00
PROVIDERS: PCP Family Medicine; Visit Provider Internal Medicine Cardiovascular Disease
DX: Z95.1 Presence of aortocoronary bypass graft (principal); I25.10 Atherosclerotic heart disease of native coronary artery without angina pectoris; I10 Essential (primary) hypertension; E78.5 Hyperlipidemia, unspecified
CPT/HCPCS: 93798

== ENCOUNTER → 2023-01-05 | Outpatient (CLI) | payer MEDICARE, SELFPAY ==
[2022-03-05 10:32] VITALS: BMI 27.4
[2023-01-05 09:25] LABS: AST(SGOT) 59 U/L (15-37); Alanine Aminotransfer ALT/SGPT 57 U/L (16-61); Anion Gap 3 (5-15); BUN 24 mg/dL (7-18); BUN/Creat Ratio 23.5 RATIO (10-20); CPK Total, Creatine Kinase 624 U/L (39-308); Calcium,Total 9.5 mg/dL (8.5-10.1); Chloride 102 mmol/L (98-107); Cholesterol 144 mg/dL (200); Creatinine, Serum 1.02 mg/dL (0.70-1.30); EST Glomerular Filtration Rate 75 mL/min (>60); Est Glom Filt Rate - Afr Amer 91 mL/min (>60); Glucose 106 mg/dL (74-106); High Density Lipoprotein 76 mg/dL; Potassium 4.3 mmol/L (3.5-5.1); Sodium Level 136 mmol/L (136-145); Triglycerides 39 mg/dL; Very Low Density Lipoprotein 8 mg/dL (5-40)
== END | disposition home or self-care (01) ==
LOC: LAB 07:54
PROVIDERS: PCP Nurse Practitioner Family; Referring Provider Internal Medicine Cardiovascular Disease; Visit Provider Internal Medicine Cardiovascular Disease
DX: I25.10 Atherosclerotic heart disease of native coronary artery without angina pectoris (principal); I10 Essential (primary) hypertension; E78.2 Mixed hyperlipidemia; I97.89 Other postprocedural complications and disorders of the circulatory system, not elsewhere classified; Z95.1 Presence of aortocoronary bypass graft
CPT/HCPCS: 36415; 80048; 80061; 82550; 84450; 84460